=== PATIENT | male | born 1955 | race Caucasian/White ===

== ENCOUNTER → 2022-07-24 09:43 | Outpatient (BNVA) | payer MEDICARE, SELFPAY | PROVIDERS: PCP Internal Medicine; Visit Provider Hospitalist | DX: J45.909 Unspecified asthma, uncomplicated (principal); G47.31 Primary central sleep apnea; J33.9 Nasal polyp, unspecified | CPT/HCPCS: 99202 ==

== ENCOUNTER → 2022-09-30 09:44 | Outpatient (BNVA) | payer MEDICARE, SELFPAY | PROVIDERS: PCP Internal Medicine; Visit Provider Hospitalist | DX: G47.31 Primary central sleep apnea (principal); R68.2 Dry mouth, unspecified; J45.909 Unspecified asthma, uncomplicated; J33.9 Nasal polyp, unspecified; L20.9 Atopic dermatitis, unspecified; Z99.89 Dependence on other enabling machines and devices | CPT/HCPCS: 99212 ==

== ENCOUNTER → 2022-10-22 19:30 | Outpatient (REF) | payer MEDICARE, SELFPAY | LOC: HO.SL 19:30 | PROVIDERS: PCP Internal Medicine; Visit Provider Hospitalist | DX: G47.33 Obstructive sleep apnea (adult) (pediatric) (principal); R06.83 Snoring | CPT/HCPCS: 95810 ==

== ENCOUNTER → 2022-11-07 19:30 | Outpatient (REF) | payer MEDICARE, SELFPAY | LOC: HO.SL 19:30 | PROVIDERS: PCP Internal Medicine; Visit Provider Hospitalist | DX: G47.33 Obstructive sleep apnea (adult) (pediatric) (principal); G47.31 Primary central sleep apnea | CPT/HCPCS: 95811 ==

== ENCOUNTER 2023-02-03 14:00 | Outpatient (AMB) | payer MEDICARE, SELFPAY ==
--- NOTE | 2023-02-03 14:10 | MHC.OFFVIS ---
Intake Vital Signs 02/03/23 14:11 Height 5 ft 10 in Weight 227 lb BMI 32.6 BP 134/78 Blood Pressure Location Lt brachial Position Sitting Pulse 60 Pulse Source Pulse Oximeter Pulse Oximetry (%) 98 Oxygen Delivery Method Room Air Intake Visit Reasons: Sleep apnea Assistant Financial Accountant Required: No Allergies Penicillins Allergy (Severe, Verified 02/03/23 14:13) Hives HPI HPI Comments History of Present Illness Details The patient is a 67-year-old gentleman with known history or asthma nasal polyps and also sleep apnea. The patient had a sleep study back in 2011 at [facility]. It was an in-lab study at that time. He did have moderate to severe sleep apnea and had both obstructive and central apneas during that study. The patient was subsequently referred for titration study. He was titrated on CPAP and managed to have good stable control of his apnea with a CPAP of 11 cm. He has been on CPAP for many years. However, he has been having hard time with CPAP at this time. His current CPAP is set up AutoPAP 8-14. I did download the data. His average pressure is around 12 and average use is around 3.5 hours. His AHI still elevated at 7 with three episodes an hour of central sleep apnea. At this time he is having hard time tolerating it because of significant dry mouth. He does use a fullface mask. And still significantly dry mouth where he needs to stop using it and drink water and refill the tank. He runs out of water from the chamber every night. His current settings he has a regular sling line tubing and humidity is at 8. I did change the APAP to CPAP 11 with ramp of 6 and decreased Humidity to 4. His last sleep study was in 2011 and he is not active with a [facility]. He will need to undergo a repeat in lab PSG to re-evaluate his complex sleep apnea. EPWORH score 05/29. 09/30/2022 the patient is here for a pulmonary follow-up visit. Continues to struggle with his sleep apnea. Still having daytime drowsiness with an [place] score elevated 05/29. If with switch his CPAP to a CPAP 11 cm of water during the last visit. The AHI continues to be elevated although less central sleep apnea noted. Therefore, will going to increase his CPAP to 13 cm and is going to monitor closely for any worsening apneic episodes. The patient also needs to have a in-lab sleep study with hopeful titration study in order to requalify him for his sleep apnea in getting him new supplies from a [employer] company in addition to being able to titrate the pressures accordingly to treat his complex sleep apnea issue. The patient does have significant asthma and also nasal polyposis and atopic dermatitis. Unfortunately nasal polyps are affecting his ability to tolerate the PAP therapy. He is doing better with a fullface mask. Still consider biologic therapy such as Dupixent will be a good option for him. In the meantime he he is using the nasal therapies with the cortical steroids and also nasal rinsing. We also talked about adding budesonide to the Neti bottle in the future in order to help decrease the inflammation. Already he is already responding to the current regimen. Will have follow up after sleep study. If the patient has any issues prior to that he is to call for an appointment. 02/03/2023 patient is here for a pulmonary follow-up visit. Overall the patient seems to be doing little better. Still having daytime drowsiness. [place] score still elevated 8/24. He did undergo a titration sleep study which recommended switching his APAP to a BiPAP with a pressure of 19/15. On that pressure we spent for about an hour during the study his AHI was 0 his oxygenation was okay and his central apneas also were under good control. Initially when he started using the BiPAP seems like his AHI is were normalized. Then subsequently something happened that his pressure started climbing. For the last 2 nights he has been doing better. He has been also struggling with the mask. Initially had a fullface mask F20 and then because of significant nasal bridge leakage she was switch over to an F 30. Still not getting a good seal and his mouth is popping out of the mask and therefore he is losing pressure. He is complaining of very dry mouth which is uncomfortable. His settings already maximum with humidity of 8 and a temperature of 82 F. I believe this is all related to position and mass where his AHI is Very variable. I did provide him with a different mask, AirTouch foam F20 large. We were able to get a good seal with this mask. Was comfortable for him. He does have facial hairs of the foam will be better keeping seal. I do believe that with the functional Del Rosario mouth is unlikely going to be dry and he probably have to decrease the humidity and the temperature. We left the settings the same . If the patient would like to try VPAP auto he can also switch the machine over to an auto setting although this may worsen the central apneas potentially. In regards of his asthma seems to be in good control at this time with current medicine. Also he did follow-up with ENT and he had no more evidence of nasal polyposis which is reassuring. ON LICENSE OF [facility] Medical History (Updated 07/24/22 @ 10:33 by Elvis Jordan MD) Asthma Complex sleep apnea syndrome Nasal polyps MAYRA on CPAP Social History (Updated 07/24/22 @ 09:57 by EMILI Pablo) Patient Tobacco Use Status: Never used Tobacco Review of Systems Const Reports daytime sleepiness, Reports snoring, Reports stops breathing during sleep and Reports weight gain Eyes Reports no additional complaints ENT Reports nasal congestion, Reports nasal discharge and Reports nasal obstruction Card Denies chest pain Resp Reports cough and Reports snoring GI Reports no additional complaints Musc Reports arthralgias and Reports limited range of motion Skin/Breast Denies rash Neuro Reports no additional complaints Endo Denies flushing Nahun/Lymph Denies easy bleeding and Denies easy bruising Aller/Immun Reports seasonal rhinorrhea Physical Exam Vital Signs: Last Vital Signs Pulse 60 02/03/23 14:11 BP 134/78 02/03/23 14:11 Pulse Ox 98 02/03/23 14:11 Oxygen Delivery Method Room Air 02/03/23 14:11 BMI result Body Mass Index 32.6 Const General: comfortable HEENT General nose exam: Abnormal mucous membranes and turbinates present erythematous and Nasal polyp present Throat: Yes cobblestoning Eyes General: appearance normal, both eyes and all related structures Neck Neck: Yes supple Chest Chest palpation & inspection: normal inspection of the chest Resp Effort & Inspection: normal respiratory effort Auscultation: clear to auscultation bilaterally and no wheezes Cardio Rate: regular rate Rhythm: regular rhythm Heart sounds: S1 normal heart sound present and S2 normal heart sound present GI Auscultation: normal bowel sounds Skin Rashes: no rashes Extrem General: No clubbing and No cyanosis Results Reviewed Results Reviewed: Personally reviewed his sleep study. Reviewed results with the patient closely in the titration results. Assessment & Plan Assessment & Plan (1) Complex sleep apnea syndrome: Code(s): G47.31 - Primary central sleep apnea (2) Asthma: Code(s): J45.909 - Unspecified asthma, uncomplicated (3) Nasal polyps: Code(s): J33.9 - Nasal polyp, unspecified Plan He did bring his BiPAP in we were able to adjust his machine and change the mask to an AirTouch F20 large. he did tried in the office in the provided a good seal he was comfortable with. He will continue with the BiPAP 19 in 15. He can also try auto PAP use has switching over if the regular BiPAP ST is not effective in controlling his apnea. My suspicion is that is will based on his titration study. nasal sprays as per Allergy continue respiratory therapy as per Allergy continue sinus saline rinsing F/U 3-4 months Coding Level of Care Code Est Pt Level 5 (66457) Diagnoses Complex sleep apnea syndrome G47.31 Asthma J45.909 Nasal polyps J33.9 Time Spent (min) 45
[2023-02-03 14:11] VITALS: BP 134/78; PULSE 60; O2SAT 98; BMI 32.6
== END 2023-02-03 14:49 | disposition home or self-care (01) ==
PROVIDERS: PCP Internal Medicine; Visit Provider Hospitalist
DX: G47.31 Primary central sleep apnea (principal); J45.909 Unspecified asthma, uncomplicated; J33.9 Nasal polyp, unspecified
CPT/HCPCS: 99215

== ENCOUNTER → 2023-02-03 14:00 | Outpatient (BNVA) | payer MEDICARE, SELFPAY | PROVIDERS: PCP Internal Medicine; Visit Provider Hospitalist | DX: J45.909 Unspecified asthma, uncomplicated (principal); J33.9 Nasal polyp, unspecified; G47.33 Obstructive sleep apnea (adult) (pediatric); G47.31 Primary central sleep apnea; R40.0 Somnolence; Z99.89 Dependence on other enabling machines and devices | CPT/HCPCS: 99212 ==

== ENCOUNTER 2023-05-22 09:18 | Outpatient (AMB) | payer MEDICARE, SELFPAY ==
[2023-05-22 09:28] VITALS: PULSE 63; O2SAT 96; BMI 32.7
--- NOTE | 2023-05-22 09:28 | MHC.OFFVIS ---
Intake Vital Signs 05/22/23 09:28 Height 5 ft 10 in Weight 228 lb BMI 32.7 Pulse 63 Pulse Source Pulse Oximeter Pulse Oximetry (%) 96 Oxygen Delivery Method Room Air Intake Visit Reasons: SV Persistent unrelenting cough C Developer Required: No Allergies Penicillins Allergy (Severe, Verified 05/22/23 09:29) Hives HPI HPI Comments History of Present Illness Details The patient is a 67-year-old gentleman with known history or asthma nasal polyps and also sleep apnea. The patient had a sleep study back in 2011 at [facility]. It was an in-lab study at that time. He did have moderate to severe sleep apnea and had both obstructive and central apneas during that study. The patient was subsequently referred for titration study. He was titrated on CPAP and managed to have good stable control of his apnea with a CPAP of 11 cm. He has been on CPAP for many years. However, he has been having hard time with CPAP at this time. His current CPAP is set up AutoPAP 8-14. I did download the data. His average pressure is around 12 and average use is around 3.5 hours. His AHI still elevated at 7 with three episodes an hour of central sleep apnea. At this time he is having hard time tolerating it because of significant dry mouth. He does use a fullface mask. And still significantly dry mouth where he needs to stop using it and drink water and refill the tank. He runs out of water from the chamber every night. His current settings he has a regular sling line tubing and humidity is at 8. I did change the APAP to CPAP 11 with ramp of 6 and decreased Humidity to 4. His last sleep study was in 2011 and he is not active with a [facility]. He will need to undergo a repeat in lab PSG to re-evaluate his complex sleep apnea. EPWORH score 05/29. 09/30/2022 the patient is here for a pulmonary follow-up visit. Continues to struggle with his sleep apnea. Still having daytime drowsiness with an [place] score elevated 05/29. If with switch his CPAP to a CPAP 11 cm of water during the last visit. The AHI continues to be elevated although less central sleep apnea noted. Therefore, will going to increase his CPAP to 13 cm and is going to monitor closely for any worsening apneic episodes. The patient also needs to have a in-lab sleep study with hopeful titration study in order to requalify him for his sleep apnea in getting him new supplies from a [employer] in addition to being able to titrate the pressures accordingly to treat his complex sleep apnea issue. The patient does have significant asthma and also nasal polyposis and atopic dermatitis. Unfortunately nasal polyps are affecting his ability to tolerate the PAP therapy. He is doing better with a fullface mask. Still consider biologic therapy such as Dupixent will be a good option for him. In the meantime he he is using the nasal therapies with the cortical steroids and also nasal rinsing. We also talked about adding budesonide to the Neti bottle in the future in order to help decrease the inflammation. Already he is already responding to the current regimen. Will have follow up after sleep study. If the patient has any issues prior to that he is to call for an appointment. 02/03/2023 patient is here for a pulmonary follow-up visit. Overall the patient seems to be doing little better. Still having daytime drowsiness. [place] score still elevated 02/26. He did undergo a titration sleep study which recommended switching his APAP to a BiPAP with a pressure of 19/15. On that pressure we spent for about an hour during the study his AHI was 0 his oxygenation was okay and his central apneas also were under good control. Initially when he started using the BiPAP seems like his AHI is were normalized. Then subsequently something happened that his pressure started climbing. For the last 2 nights he has been doing better. He has been also struggling with the mask. Initially had a fullface mask F20 and then because of significant nasal bridge leakage she was switch over to an F 30. Still not getting a good seal and his mouth is popping out of the mask and therefore he is losing pressure. He is complaining of very dry mouth which is uncomfortable. His settings already maximum with humidity of 8 and a temperature of 82 F. I believe this is all related to position and mass where his AHI is Very variable. I did provide him with a different mask, AirTouch foam F20 large. We were able to get a good seal with this mask. Was comfortable for him. He does have facial hairs of the foam will be better keeping seal. I do believe that with the functional Del Rosario mouth is unlikely going to be dry and he probably have to decrease the humidity and the temperature. We left the settings the same 19/15. If the patient would like to try VPAP auto he can also switch the machine over to an auto setting although this may worsen the central apneas potentially. In regards of his asthma seems to be in good control at this time with current medicine. Also he did follow-up with ENT and he had no more evidence of nasal polyposis which is reassuring. 05/22/2023 the patient is here for sick visit. The patient a worse cough the last 4 weeks. The cough is moderate to severe. He has gotten to coughing spells where he nearly passed out or even passed out. He also has had a coughing episodes where he gags and vomits. Is been pretty significant for him. The patient states that he is able to bring up some phlegm at times that is whitish in color. Denies any pleuritic chest pain. He has been using his inhaler. He did go up on the Trelegy to the 200 to see if this was more effective. He did get the RCA vaccine. He also get the flu vaccine. He did test negative for COVID-19. The cough appears to be bronchospastic although diminished breath sounds bilaterally. Will go ahead and treat him with DuoNeb x2 and then we will reassess the respiratory examination. I did personally review the chest x-ray that he had a [facility] on May 18 demonstrating no acute disease. Does have significant scoliosis. [facility] Medical History (Updated 05/24/23 @ 19:51 by Elvis Jordan MD) Chronic cough Nasal polyps Asthma Complex sleep apnea syndrome MAYRA on CPAP Social History (Updated 07/24/22 @ 09:57 by EMILI Pablo) Patient Tobacco Use Status: Never used Tobacco Review of Systems Const Reports weight gain Eyes Reports no additional complaints ENT Reports nasal congestion, Reports nasal discharge and Reports nasal obstruction Card Denies chest pain Resp Reports chest congestion, Reports cough and Reports wheezing GI Reports no additional complaints Musc Reports arthralgias and Reports limited range of motion Skin/Breast Denies rash Neuro Reports no additional complaints Endo Denies flushing Nahun/Lymph Denies easy bleeding and Denies easy bruising Aller/Immun Reports seasonal rhinorrhea and Reports wheezing Physical Exam Vital Signs: Last Vital Signs Pulse 63 05/22/23 09:28 Pulse Ox 96 05/22/23 09:28 Oxygen Delivery Method Room Air 05/22/23 09:28 BMI result Body Mass Index 32.7 Const General: comfortable HEENT General nose exam: Abnormal mucous membranes and turbinates present erythematous and Nasal polyp present Throat: Yes cobblestoning Eyes General: appearance normal, both eyes and all related structures Neck Neck: Yes supple Chest Chest palpation & inspection: normal inspection of the chest Resp Effort & Inspection: normal respiratory effort, Actively coughing Quality: actively coughing and prolonged expiratory phase Auscultation: wheezes and diminished lung sounds Cardio Rate: regular rate Rhythm: regular rhythm Heart sounds: S1 normal heart sound present and S2 normal heart sound present GI Auscultation: normal bowel sounds Skin Rashes: no rashes Extrem General: No clubbing and No cyanosis Office Procedures Nebulizer Treatment Nebulizer Treatment [id number] RX initial, or Nebulizer Subsequent Treatment Office Meds ipratropium 0.5 mg-albuterol 3 mg (2.5 mg base)/3 mL nebulization soln Performing Provider: Elvis Jordan MD Performing Location: [facility] Administered by: Naheed Wall LPN on 05/22/23 09:53 Dose Route Admin Location Dispensed Lot Number Expiration Date ND Claim Rep 6 mL inhalation 6 mL [id number] 01/02/25 0834-3945-35 [facility] Assessment & Plan Assessment & Plan (1) Complex sleep apnea syndrome: Code(s): G47.31 - Primary central sleep apnea (2) Asthma: Code(s): J45.909 - Unspecified asthma, uncomplicated Qualifiers: Asthma complication type: with acute exacerbation Asthma persistence: persistent Asthma severity: moderate Qualified Code(s): J45.41 - Moderate persistent asthma with (acute) exacerbation (3) Nasal polyps: Code(s): J33.9 - Nasal polyp, unspecified (4) Bronchitis: Code(s): J40 - Bronchitis, not specified as acute or chronic Plan Needs a nebulizer. One was provided start CPT with acapella Start Albuterol via nebulizer BID start Predniaone taper start Doxycycline increase Breo 200 for now nasal sprays as per Allergy continue sinus saline rinsing consider cough medicine call if no better F/U 3-4 months Orders: Orders AMB Nebulizer Treatment 05/22/23 J45.909 - Unspecified asthma, uncomplicated, R05.3 - Chronic cough Medications: New doxycycline hyclate 100 mg PO BID 10 days 20 caps 0RF albuterol sulfate 2.5 mg (3 mL) inhalation Q6H 30 days PRN 180 mL 11RF shortness of breath or wheezing fluticasone furoate-vilanterol 200-25 mcg/dose (Breo Ellipta) 1 inh inhalation DAILY 30 days 60 ea 11RF J45.909 - Unspecified asthma, uncomplicated prednisone PO daily; Take 2 tabs daily x 5 days, then 1 tablet daily x 5 days 10 days 15 tabs 0RF Coding Level of Care Code Est Pt Level 4 (03443) Diagnoses Complex sleep apnea syndrome G47.31 Moderate persistent asthma with acute exacerbation J45.41 Asthma complication type: with acute exacerbation Asthma persistence: persistent Asthma severity: moderate Nasal polyps J33.9 Bronchitis J40 CPT Codes Nebulizer Treatment - Nebulizer Treatment, initial or subsequent: [id number]/MDI RX initial, or Nebulizer Subsequent Treatment ([id number]) Time Spent (min) 18
== END 2023-05-22 10:18 | disposition home or self-care (01) ==
PROVIDERS: PCP Internal Medicine; Visit Provider Hospitalist
DX: G47.31 Primary central sleep apnea (principal); J45.41 Moderate persistent asthma with (acute) exacerbation; J33.9 Nasal polyp, unspecified; J40 Bronchitis, not specified as acute or chronic
CPT/HCPCS: 99214

== ENCOUNTER → 2023-05-22 09:18 | Outpatient (BNVA) | payer MEDICARE, SELFPAY | PROVIDERS: PCP Internal Medicine; Visit Provider Hospitalist | DX: J45.41 Moderate persistent asthma with (acute) exacerbation (principal); J33.9 Nasal polyp, unspecified; J40 Bronchitis, not specified as acute or chronic; G47.31 Primary central sleep apnea | CPT/HCPCS: 94640; 99212 ==

== ENCOUNTER 2023-07-31 14:10 | Outpatient (AMB) | payer MEDICARE, SELFPAY ==
--- NOTE | 2023-07-31 14:16 | MHC.OFFVIS ---
Intake Vital Signs 07/31/23 14:17 Height 5 ft 11 in Weight 234 lb BMI 32.6 Pulse 62 Pulse Source Pulse Oximeter Pulse Oximetry (%) 95 Oxygen Delivery Method Room Air Intake Visit Reasons: sleep apnea Solid Die Cutter Required: No Allergies Penicillins Allergy (Severe, Verified 07/31/23 14:18) Hives HPI HPI Comments History of Present Illness Details The patient is a 67-year-old gentleman with known history or asthma nasal polyps and also sleep apnea. The patient had a sleep study back in 2011 at [facility]. It was an in-lab study at that time. He did have moderate to severe sleep apnea and had both obstructive and central apneas during that study. The patient was subsequently referred for titration study. He was titrated on CPAP and managed to have good stable control of his apnea with a CPAP of 11 cm. He has been on CPAP for many years. However, he has been having hard time with CPAP at this time. His current CPAP is set up AutoPAP 8-14. I did download the data. His average pressure is around 12 and average use is around 3.5 hours. His AHI still elevated at 7 with three episodes an hour of central sleep apnea. At this time he is having hard time tolerating it because of significant dry mouth. He does use a fullface mask. And still significantly dry mouth where he needs to stop using it and drink water and refill the tank. He runs out of water from the chamber every night. His current settings he has a regular sling line tubing and humidity is at 8. I did change the APAP to CPAP 11 with ramp of 6 and decreased Humidity to 4. His last sleep study was in 2011 and he is not active with a [employer]. He will need to undergo a repeat in lab PSG to re-evaluate his complex sleep apnea. EPWORH score 05/29. 09/30/2022 the patient is here for a pulmonary follow-up visit. Continues to struggle with his sleep apnea. Still having daytime drowsiness with an [place] score elevated 05/29. If with switch his CPAP to a CPAP 11 cm of water during the last visit. The AHI continues to be elevated although less central sleep apnea noted. Therefore, will going to increase his CPAP to 13 cm and is going to monitor closely for any worsening apneic episodes. The patient also needs to have a in-lab sleep study with hopeful titration study in order to requalify him for his sleep apnea in getting him new supplies from a [employer] in addition to being able to titrate the pressures accordingly to treat his complex sleep apnea issue. The patient does have significant asthma and also nasal polyposis and atopic dermatitis. Unfortunately nasal polyps are affecting his ability to tolerate the PAP therapy. He is doing better with a fullface mask. Still consider biologic therapy such as Dupixent will be a good option for him. In the meantime he he is using the nasal therapies with the cortical steroids and also nasal rinsing. We also talked about adding budesonide to the Neti bottle in the future in order to help decrease the inflammation. Already he is already responding to the current regimen. Will have follow up after sleep study. If the patient has any issues prior to that he is to call for an appointment. 02/03/2023 patient is here for a pulmonary follow-up visit. Overall the patient seems to be doing little better. Still having daytime drowsiness. [place] score still elevated 02/26. He did undergo a titration sleep study which recommended switching his APAP to a BiPAP with a pressure of 19/15. On that pressure we spent for about an hour during the study his AHI was 0 his oxygenation was okay and his central apneas also were under good control. Initially when he started using the BiPAP seems like his AHI is were normalized. Then subsequently something happened that his pressure started climbing. For the last 2 nights he has been doing better. He has been also struggling with the mask. Initially had a fullface mask F20 and then because of significant nasal bridge leakage she was switch over to an F 30. Still not getting a good seal and his mouth is popping out of the mask and therefore he is losing pressure. He is complaining of very dry mouth which is uncomfortable. His settings already maximum with humidity of 8 and a temperature of 82 F. I believe this is all related to position and mass where his AHI is Very variable. I did provide him with a different mask, AirTouch foam F20 large. We were able to get a good seal with this mask. Was comfortable for him. He does have facial hairs of the foam will be better keeping seal. I do believe that with the functional Del Rosario mouth is unlikely going to be dry and he probably have to decrease the humidity and the temperature. We left the settings the same 19/15. If the patient would like to try VPAP auto he can also switch the machine over to an auto setting although this may worsen the central apneas potentially. In regards of his asthma seems to be in good control at this time with current medicine. Also he did follow-up with ENT and he had no more evidence of nasal polyposis which is reassuring. 05/22/2023 the patient is here for sick visit. The patient a worse cough the last 4 weeks. The cough is moderate to severe. He has gotten to coughing spells where he nearly passed out or even passed out. He also has had a coughing episodes where he gags and vomits. Is been pretty significant for him. The patient states that he is able to bring up some phlegm at times that is whitish in color. Denies any pleuritic chest pain. He has been using his inhaler. He did go up on the Trelegy to the 200 to see if this was more effective. He did get the RCA vaccine. He also get the flu vaccine. He did test negative for COVID-19. The cough appears to be bronchospastic although diminished breath sounds bilaterally. Will go ahead and treat him with DuoNeb x2 and then we will reassess the respiratory examination. I did personally review the chest x-ray that he had a [facility] on May 18 demonstrating no acute disease. Does have significant scoliosis. 07/31/2023 the patient is here for pulmonary follow-up visit. Finally starting to feel better. He was struggling with a respiratory illness in the last time I saw him. Subsequently after that he was starting to get better and then started getting worse again. He was evaluated at [facility] for worsening shortness of breath and chest tightness. He was diagnosed with RSV his chest x-ray personally viewed appeared to be clear. He has been using his nebulizer regularly. Finally he is now off the prednisone and off all antibiotics. He is feeling better overall. Denies any congested cough although he still coughing and still feel some chest tightness. A my examination it is reassuring he does not have any significant wheezing at this time. I do not believe he needs additional steroids. He does plan to continue using the nebulizer and is Breo will be increased to a higher dose. If the patient is not improving or worsens he can always call for further Recommendations. As far as his BiPAP the BiPAP therapy has been affecting beneficial. He does use it every night for more than 4 hours a night in the therapy continues to be helpful. [facility] Medical History (Updated 05/24/23 @ 19:51 by Elvis Jordan MD) Chronic cough Nasal polyps Asthma Complex sleep apnea syndrome MAYRA on CPAP Social History (Updated 07/24/22 @ 09:57 by EMILI Pablo) Patient Tobacco Use Status: Never used Tobacco Review of Systems Const Reports weight gain Eyes Reports no additional complaints ENT Reports nasal congestion, Reports nasal discharge and Reports nasal obstruction Card Denies chest pain Resp Denies chest congestion, Reports cough and Reports wheezing GI Reports no additional complaints Musc Reports arthralgias and Reports limited range of motion Skin/Breast Denies rash Neuro Reports no additional complaints Endo Denies flushing Nahun/Lymph Denies easy bleeding and Denies easy bruising Aller/Immun Reports seasonal rhinorrhea and Reports wheezing Physical Exam Vital Signs: Last Vital Signs Pulse 62 07/31/23 14:17 Pulse Ox 95 07/31/23 14:17 Oxygen Delivery Method Room Air 07/31/23 14:17 BMI result Body Mass Index 32.6 Const General: comfortable HEENT General nose exam: Abnormal mucous membranes and turbinates present erythematous and Nasal polyp present Throat: Yes cobblestoning Eyes General: appearance normal, both eyes and all related structures Neck Neck: Yes supple Chest Chest palpation & inspection: normal inspection of the chest Resp Effort & Inspection: normal respiratory effort Auscultation: no wheezes and diminished lung sounds Cardio Rate: regular rate Rhythm: regular rhythm Heart sounds: S1 normal heart sound present and S2 normal heart sound present GI Auscultation: normal bowel sounds Skin Rashes: no rashes Extrem General: No clubbing and No cyanosis Assessment & Plan Assessment & Plan (1) Complex sleep apnea syndrome: Code(s): G47.31 - Primary central sleep apnea (2) Asthma: Code(s): J45.909 - Unspecified asthma, uncomplicated Qualifiers: Asthma complication type: with acute exacerbation Asthma persistence: persistent Asthma severity: moderate Qualified Code(s): J45.41 - Moderate persistent asthma with (acute) exacerbation (3) Nasal polyps: Code(s): J33.9 - Nasal polyp, unspecified (4) Bronchitis: Code(s): J40 - Bronchitis, not specified as acute or chronic Plan Needs a nebulizer. One was provided continue CPT with acapella Albuterol via nebulizer BID as needed increase Breo 200 for now nasal sprays as per Allergy continue sinus saline rinsing consider cough medicine call if no better F/U 3-4 months Coding Level of Care Code Est Pt Level 4 (39791) Diagnoses Complex sleep apnea syndrome G47.31 Moderate persistent asthma with acute exacerbation J45.41 Asthma complication type: with acute exacerbation Asthma persistence: persistent Asthma severity: moderate Nasal polyps J33.9 Bronchitis J40 Time Spent (min) 18
[2023-07-31 14:17] VITALS: PULSE 62; O2SAT 95; BMI 32.6
== END 2023-07-31 14:39 | disposition home or self-care (01) ==
PROVIDERS: PCP Internal Medicine; Visit Provider Hospitalist
DX: G47.31 Primary central sleep apnea (principal); J45.41 Moderate persistent asthma with (acute) exacerbation; J33.9 Nasal polyp, unspecified; J40 Bronchitis, not specified as acute or chronic
CPT/HCPCS: 99214

== ENCOUNTER → 2023-07-31 14:10 | Outpatient (BNVA) | payer MEDICARE, SELFPAY | PROVIDERS: PCP Internal Medicine; Visit Provider Hospitalist | DX: J45.41 Moderate persistent asthma with (acute) exacerbation (principal); G47.31 Primary central sleep apnea; J33.9 Nasal polyp, unspecified; J40 Bronchitis, not specified as acute or chronic | CPT/HCPCS: 99212 ==

== ENCOUNTER 2024-04-11 14:07 | Outpatient (AMB) | payer MEDICARE, SELFPAY ==
[2024-04-11 14:21] VITALS: BP 120/78; PULSE 62; O2SAT 98; BMI 31.4
--- NOTE | 2024-04-11 14:21 | A.OFFVIS_ITS ---
Vital Signs 04/11/24 14:21 Height 5 ft 11 in Weight 225 lb BMI 31.4 BP 120/78 Blood Pressure Location Lt brachial Position Sitting Pulse 62 Pulse Source Pulse Oximeter Pulse Oximetry (%) 98 Oxygen Delivery Method Room Air Intake Visit Reasons: persistent cough Water Quality Tester Required: No Allergies Penicillins Allergy (Severe, Verified 04/11/24 14:23) Hives HPI Comments Details: The patient is a 68-year-old gentleman with known history or asthma nasal polyps and also sleep apnea. The patient had a sleep study back in 2011 at [facility]. It was an in-lab study at that time. He did have moderate to severe sleep apnea and had both obstructive and central apneas during that study . The patient was subsequently referred for titration study. He was titrated on CPAP and managed to have good stable control of his apnea with a CPAP of 11 cm. He has been on CPAP for many years. However, he has been having hard time with CPAP at this time. His current CPAP is set up AutoPAP 8-14. I did download the data. His average pressure is around 12 and average use is around 3.5 hours. His AHI still elevated at 7 with three episodes an hour of central sleep apnea. At this time he is having hard time tolerating it because of significant dry mouth. He does use a fullface mask. And still significantly dry mouth where he needs to stop using it and drink water and refill the tank. He runs out of water from the chamber every night. His current settings he has a regular sling line tubing and humidity is at 8. I did change the APAP to CPAP 11 with ramp of 6 and decreased Humidity to 4. His last sleep study was in 2011 and he is not active with a [employer]. He will need to undergo a repeat in lab PSG to re-evaluate his complex sleep apnea. EPWORH score 05/29. 09/30/2022 the patient is here for a pulmonary follow-up visit. Continues to struggle with his sleep apnea. Still having daytime drowsiness with an [place] score elevated 05/29. If with switch his CPAP to a CPAP 11 cm of water during the last visit. The AHI continues to be elevated although less central sleep apnea noted. Therefore, will going to increase his CPAP to 13 cm and is going to monitor closely for any worsening apneic episodes. The patient also needs to have a in-lab sleep study with hopeful titration study in order to requalify him for his sleep apnea in getting him new supplies from a [employer] company in addition to being able to titrate the pressures accordingly to treat his complex sleep apnea issue. The patient does have significant asthma and also nasal polyposis and atopic dermatitis. Unfortunately nasal polyps are affecting his ability to tolerate the PAP therapy. He is doing better with a fullface mask. Still consider biologic therapy such as Dupixent will be a good option for him. In the meantime he he is using the nasal therapies with the cortical steroids and also nasal rinsing. We also talked about adding budesonide to the Neti bottle in the future in order to help decrease the inflammation. Already he is already responding to the current regimen. Will have follow up after sleep study. If the patient has any issues prior to that he is to call for an appointment. 02/03/2023 patient is here for a pulmonary follow-up visit. Overall the patient seems to be doing little better. Still having daytime drowsiness. [place] score still elevated 8/24. He did undergo a titration sleep study which recommended switching his APAP to a BiPAP with a pressure of 19/15. On that pressure we spent for about an hour during the study his AHI was 0 his oxygenation was okay and his central apneas also were under good control. Initially when he started using the BiPAP seems like his AHI is were normalized. Then subsequently something happened that his pressure started climbing. For the last 2 nights he has been doing better. He has been also struggling with th e mask. Initially had a fullface mask F20 and then because of significant nasal bridge leakage she was switch over to an F 30. Still not getting a good seal and his mouth is popping out of the mask and therefore he is losing pressure. He is complaining of very dry mouth which is uncomfortable. His settings already maximum with humidity of 8 and a temperature of 82 F. I believe this is all related to position and mass where his AHI is Very variable. I did provide him with a different mask, AirTouch foam F20 large. We were able to get a good seal with this mask. Was comfortable for him. He does have facial hairs of the foam will be better keeping seal. I do believe that with the functional Del Rosario mouth is unlikely going to be dry and he probably have to decrease the humidity and the temperature. We left the settings the same . If the patient would like to try VPAP auto he can also switch the machine over to an auto setting although this may worsen the central apneas potentially. In regards of his asthma seems to be in good control at this time with current medicine. Also he did follow-up with ENT and he had no more evidence of nasal polyposis which is reassuring. 05/22/2023 the patient is here for sick visit. The patient a worse cough the last 4 weeks. The cough is moderate to severe. He has gotten to coughing spells where he nearly passed out or even passed out. He also has had a coughing episodes where he gags and vomits. Is been pretty significant for him. The patient states that he is able to bring up some phlegm at times that is whitish in color. Denies any pleuritic chest pain. He has been using his inhaler. He did go up on the Trelegy to the [facility] to see if this was more effective. He did get the RCA vaccine. He also get the flu vaccine. He did test negative for COVID-19. The cough appears to be bronchospastic although diminished breath sounds bilaterally. Will go ahead and treat him with DuoNeb x2 and then we will reassess the respiratory examination. I did personally review the chest x-ray that he had a [facility] on May 18 demonstrating no acute disease. Does have significant scoliosis. 07/31/2023 the patient is here for pulmonary follow-up visit. Finally starting to feel better. He was struggling with a respiratory illness in the last time I saw him. Subsequently after that he was starting to get better and then started getting worse again. He was evaluated at [facility] for worsening shortness of breath and chest tightness. He was diagnosed with RSV his chest x-ray personally viewed appeared to be clear. He has been using his nebulizer regularly. Finally he is now off the prednisone and off all antibiotics. He is feeling better overall. Denies any congested cough although he still coughing and still feel some chest tightness. A my examination it is reassuring he does not have any significant wheezing at this time. I do not believe he needs additional steroids. He does plan to continue using the nebulizer and is Breo will be increased to a higher dose. If the patient is not improving or worsens he can always call for further Recommendations. As far as his BiPAP the BiPAP therapy has been affecting beneficial. He does use it every night for more than 4 hours a night in the therapy continues to be helpful. 04/11/2024 the patient is here for sick visit. Apparently 2 weeks ago he was exposed to sick contact with his grandson. started developing URI symptoms. And then subsequently after that started developing worsening asthma symptoms. Significant chest tightness and wheezing. And subsequently coughing. The coughing spells became worse and worse. the coughing spells were pretty is sporadic. But moderate severity. Affecting his sleep. He has taken djlu-jux-xndzhvu medications without any significant improvement. He has been using his inhalers in his nebulizer also with only partial improvement of the symptoms. Therefore could not tolerate the symptoms longer decided to come in. The patient was having significant coughing spells and did have some crackles on examination suggesting some degree of bronchiolitis. He was given 2 treatments with DuoNeb with some partial improvement. Subsequently because of the significant chest tightness and wheezing he did receive Solu-Medrol intramuscularly. He is going to start a prednisone taper in addition to doxycycline to make sure we took covered for atypicals. If the patient is no better in 48 hours or so should call the office and we should get an x-ray. He meantime will provide him also with some cough medicine. He can hold off on using the BiPAP specially well dealing with a cough. Once he recovers from this respiratory illness she can go back to using the BiPAP. The patient has a follow-up in May. If he has any issues prior to that he will call for an earlier assessment. [facility] Medical History (Updated 09/29/23 @ 19:27 by Elvis Jordan MD) Dyspnea Chronic cough Nasal polyps Asthma Complex sleep apnea syndrome MAYRA on CPAP Social History (Updated 07/24/22 @ 09:57 by EMILI Pablo) Patient Tobacco Use Status: Never used Tobacco Review of Systems Const Reports fatigue, Denies fever(s), Reports headache(s) and Reports weight gain Eyes Reports no additional complaints ENT Reports headache(s), Reports nasal congestion, Reports nasal discharge and Reports nasal obstruction Card Denies chest pain Resp Denies change in phlegm color, Reports chest congestion, Reports cough, Denies hemoptysis and Reports wheezing GI Reports no additional complaints Musc Reports arthralgias and Reports limited range of motion Skin/Breast Denies rash Neuro Reports no additional complaints and Reports headache(s) Endo Reports fatigue and Denies flushing Nahun/Lymph Denies easy bleeding and Denies easy bruising Aller/Immun Reports seasonal rhinorrhea and Reports wheezing Physical Exam Vital Signs: Last Vital Signs Pulse 62 04/11/24 14:21 BP 120/78 04/11/24 14:21 Pulse Ox 98 04/11/24 14:21 Oxygen Delivery Method Room Air 04/11/24 14:21 BMI result Body Mass Index 31.4 Const General: comfortable HEENT General nose exam: Abnormal mucous membranes and turbinates present erythematous and Nasal polyp present Throat: Yes cobblestoning Eyes General: appearance normal, both eyes and all related structures Neck Neck: Yes supple Chest Chest palpation & inspection: normal inspection of the chest Resp Effort & Inspection: normal respiratory effort and Actively coughing Quality: actively coughing Auscultation: wheezes and diminished lung sounds Cardio Rate: regular rate Rhythm: regular rhythm Heart sounds: S1 normal heart sound present and S2 normal heart sound present GI Auscultation: normal bowel sounds Skin Rashes: no rashes Extrem General: No clubbing and No cyanosis Office Procedures Nebulizer Treatment Nebulizer Treatment [id number]/MDI RX initial, or Nebulizer Subsequent Treatment Office Meds methylprednisolone sod suc(PF) 125 mg/2 mL solution for injection Performing Provider: Elvis Jordan MD [place] [facility] [place] [facility] Administered by: Melisa Church LPN on 04/11/24 15:20 Dose Route Admin Location Dispensed Lot Number Expiration Date [facility] Senior Business Intelligence Analyst 125 mg IM R buttock 2 ea [id number] 03/05/26 1316-9647-84 [employer] Comments: total dose given 125mg/2ml ipratropium 0.5 mg-albuterol 3 mg (2.5 mg base)/3 mL nebulization soln Performing Provider: Elvis Jordan MD [place] [facility] [place] [facility] Administered by: Melisa Church LPN on 04/11/24 15:20 Dose Route Admin Location Dispensed Lot Number Expiration Date [facility] Senior Business Intelligence Analyst 3 mL inhalation 3 mL [id number] 11/02/25 34738-475-75 [facility] Assessment & Plan Assessment & Plan (1) Asthma: Code(s): J45.909 - Unspecified asthma, uncomplicated Category: Medical Qualifiers: Asthma severity: moderate Asthma persistence: persistent Asthma complication type: with acute exacerbation Qualified Code(s): J45.41 - Moderate persistent asthma with (acute) exacerbation (2) Bronchitis: Code(s): J40 - Bronchitis, not specified as acute or chronic Category: Medical (3) Complex sleep apnea syndrome: Code(s): G47.31 - Primary central sleep apnea Category: Medical (4) Nasal polyps: Code(s): J33.9 - Nasal polyp, unspecified Category: Medical Plan Solumedrol 125mg IM x 1 Prednisone taper start Doxycycline cough medicine nebulizer. continue CPT with acapella Albuterol via nebulizer BID as needed Breo 200 for now nasal sprays as per Allergy continue sinus saline rinsing call if no better in 48 hours F/U 2-3 months Orders: Orders AMB Nebulizer Treatment Today J40 - Bronchitis, not specified as acute or chronic AMB Methylprednisolone Sod Succ Injection Today J40 - Bronchitis, not specified as acute or chronic Medications: New prednisone PO daily; Take 6 tabs daily x 3 days, then 5 tabs x 3 days, then 4 tabs x 3 days, then 3 tabs x 3 days, then 2 tabs daily x 3 days, then 1 tab x 3 days to complete. 63 tabs 0RF 18 days codeine-guaifenesin 10-100 mg/5 mL 10 mL PO Q6H PRN 300 mL 0RF cough 10 days doxycycline hyclate 100 mg PO BID 20 caps 0RF 10 days Coding Level of Care Code Est Pt Level 4 (74740) Diagnoses Moderate persistent asthma with acute exacerbation J45.41 Asthma severity: moderate Asthma persistence: persistent Asthma complication type: with acute exacerbation Bronchitis J40 Complex sleep apnea syndrome G47.31 Nasal polyps J33.9 CPT Codes Nebulizer Treatment - Nebulizer Treatment, initial or subsequent: [id number]- Nebulizer/MDI RX initial, or Nebulizer Subsequent Treatment ([id number]) Time Spent (min) 17
== END 2024-04-11 15:14 | disposition home or self-care (01) ==
PROVIDERS: PCP Internal Medicine; Visit Provider Hospitalist
DX: J45.41 Moderate persistent asthma with (acute) exacerbation (principal); J40 Bronchitis, not specified as acute or chronic; G47.31 Primary central sleep apnea; J33.9 Nasal polyp, unspecified
CPT/HCPCS: 99214

== ENCOUNTER → 2024-04-11 14:07 | Outpatient (BNVA) | payer MEDICARE, SELFPAY | PROVIDERS: PCP Internal Medicine; Visit Provider Hospitalist | DX: J45.41 Moderate persistent asthma with (acute) exacerbation (principal); J40 Bronchitis, not specified as acute or chronic; J33.9 Nasal polyp, unspecified; R05.3 Chronic cough; G47.31 Primary central sleep apnea; Z99.89 Dependence on other enabling machines and devices | CPT/HCPCS: 94640; 96372; 99212; J2919 ==

== ENCOUNTER 2024-05-17 09:06 | Outpatient (AMB) | payer MEDICARE, SELFPAY ==
[2024-05-17 09:08] VITALS: BP 140/72; PULSE 72; O2SAT 98; BMI 32.9
--- NOTE | 2024-05-17 09:08 | A.OFFVIS_ITS ---
Vital Signs 05/17/24 09:08 Height 5 ft 11 in Weight 235 lb 14.314 oz BMI 32.9 BP 140/72 H Blood Pressure Location Lt brachial Position Sitting Pulse 72 Pulse Source Pulse Oximeter Pulse Oximetry (%) 98 Oxygen Delivery Method Room Air Intake Visit Reasons: Sleep apnea Tribal Judge Required: No Painter Ordnance: Painter Ordnance offered & declined Accompanied by: Self / Same As Patient Allergies Penicillins Allergy (Severe, Verified 05/17/24 09:14) Hives Medication List - Last Reconciled 05/17/24 by Naheed Wall LPN albuterol sulfate 90 mcg/actuation 0 mcg inhalation albuterol sulfate 2.5 mg (3 mL) inhalation Q6H PRN 30 days amlodipine 5 mg PO DAILY azelastine 2 sprays intranasal BID Breo Ellipta 200-25 mcg/dose (fluticasone furoate-vilanterol) 1 inh inhalation DAILY 90 days NS cetirizine (Zyrtec) 10 mg PO DAILY PRN codeine-guaifenesin 10-100 mg/5 mL 10 mL PO Q6H PRN 10 days CPAP (CPAP Machine/Device) As directed epinephrine 0.3 mg IM Q4H PRN nebulizers As directed omeprazole 20 mg PO DAILY propranolol 60 mg PO DAILY HPI Comments Details: The patient is a 68-year-old gentleman with known history or asthma nasal polyps and also sleep apnea. The patient had a sleep study back in 2011 at [facility]. It was an in-lab study at that time. He did have moderate to severe sleep apnea and had both obstructive and central apneas during that study. The patient was subsequently referred for titration study. He was titrated on CPAP and managed to have good stable control of his apnea with a CPAP of 11 cm. He has been on CPAP for many years. However, he has been having hard time with CPAP at this time. His current CPAP is set up AutoPAP 8-14. I did download the data. His average pressure is around 12 and average use is around 3.5 hours. His AHI still elevated at 7 with three episodes an hour of central sleep apnea. At this time he is having hard time tolerating it because of significant dry mouth. He does use a fullface mask. And still significantly dry mouth where he needs to stop using it and drink water and refill the tank. He runs out of water from the chamber every night. His current settings he has a regular sling line tubing and humidity is at 8. I did change the APAP to CPAP 11 with ramp of 6 and decreased Humidity to 4. His last sleep study was in 2011 and he is not active with a [employer] company. He will need to undergo a repeat in lab PSG to re-evaluate his complex sleep apnea. EPWORH score 11/24. 09/30/2022 the patient is here for a pulmonary follow-up visit. Continues to struggle with his sleep apnea. Still having daytime drowsiness with an Florence score elevated 11/24. If with switch his CPAP to a CPAP 11 cm of water during the last visit. The AHI continues to be elevated although less central sleep apnea noted. Therefore, will going to increase his CPAP to 13 cm and is going to monitor closely for any worsening apneic episodes. The patient also needs to have a in-lab sleep study with hopeful titration study in order to requalify him for his sleep apnea in getting him new supplies from a [employer] company in addition to being able to titrate the pressures accordingly to treat his complex sleep apnea issue. The patient does have significant asthma and also nasal polyposis and atopic dermatitis. Unfortunately nasal polyps are affecting his ability to tolerate the PAP therapy. He is doing better with a fullface mask. Still consider biologic therapy such as Dupixent will be a good option for him. In the meantime he he is using the nasal therapies with the cortical steroids and also nasal rinsing. We also talked about adding budesonide to the Neti bottle in the future in order to help decrease the inflammation. Already he is already responding to the current regimen. Will have follow up after sleep study. If the patient has any issues prior to that he is to call for an appointment. 02/03/2023 patient is here for a pulmonary follow-up visit. Overall the patient seems to be doing little better. Still having daytime drowsiness. Florence score still elevated 8/24. He did undergo a titration sleep study which recommended switching his APAP to a BiPAP with a pressure of 19/15. On that pressure we spent for about an hour during the study his AHI was 0 his oxygenation was okay and his central apneas also were under good control. Initially when he started using the BiPAP seems like his AHI is were normalized. Then subsequently something happened that his pressure started climbing. For the last 2 nights he has been doing better. He has been also struggling with the mask. Initially had a fullface mask F20 and then because of significant nasal bridge leakage she was switch over to an F 30. Still not getting a good seal and his mouth is popping out of the mask and therefore he is losing pressure. He is complaining of very dry mouth which is uncomfortable. His settings already maximum with humidity of 8 and a temperature of 82 F. I believe this is all related to position and mass where his AHI is Very variable. I did provide him with a different mask, AirTouch foam F20 large. We were able to get a good seal with this mask. Was comfortable for him. He does have facial hairs of the foam will be better keeping seal. I do believe that with the functional [place] mouth is unlikely going to be dry and he probably have to decrease the humidity and the temperature. We left the settings the same . If the patient would like to try VPAP auto he can also switch the machine over to an auto setting although this may worsen the central apneas potentially. In regards of his asthma seems to be in good control at this time with current medicine. Also he did follow-up with ENT and he had no more evidence of nasal polyposis which is reassuring. 05/22/2023 the patient is here for sick visit. The patient a worse cough the last 4 weeks. The cough is moderate to severe. He has gotten to coughing spells where he nearly passed out or even passed out. He also has had a coughing episodes where he gags and vomits. Is been pretty significant for him. The patient states that he is able to bring up some phlegm at times that is whitish in color. Denies any pleuritic chest pain. He has been using his inhaler. He did go up on the Trelegy to the 200 to see if this was more effective. He did get the RCA vaccine. He also get the flu vaccine. He did test negative for COVID-19. The cough appears to be bronchospastic although diminished breath sounds bilaterally. Will go ahead and treat him with DuoNeb x2 and then we will reassess the respiratory examination. I did personally review the chest x-ray that he had a [facility] on May 18 demonstrating no acute disease. Does have significant scoliosis. 07/31/2023 the patient is here for pulmonary follow-up visit. Finally starting to feel better. He was struggling with a respiratory illness in the last time I saw him. Subsequently after that he was starting to get better and then started getting worse again. He was evaluated at [place] for worsening shortness of breath and chest tightness. He was diagnosed with RSV his chest x-ray personally viewed appeared to be clear. He has been using his nebulizer regularly. Finally he is now off the prednisone and off all antibiotics. He is feeling better overall. Denies any congested cough although he still coughing and still feel some chest tightness. A my examination it is reassuring he does not have any significant wheezing at this time. I do not believe he needs additional steroids. He does plan to continue using the nebulizer and is Breo will be increased to a higher dose. If the patient is not improving or worsens he can always call for further Recommendations. As far as his BiPAP the BiPAP therapy has been affecting beneficial. He does use it every night for more than 4 hours a night in the therapy continues to be helpful. 04/11/2024 the patient is here for sick visit. Apparently 2 weeks ago he was exposed to sick contact with his grandson. started developing URI symptoms. And then subsequently after that started developing worsening asthma symptoms. Significant chest tightness and wheezing. And subsequently coughing. The coughing spells became worse and worse. the coughing spells were pretty is sporadic. But moderate severity. Affecting his sleep. He has taken [id number] medications without any significant improvement. He has been using his inhalers in his nebulizer also with only partial improvement of the symptoms. Therefore could not tolerate the symptoms longer decided to come in. The patient was having significant coughing spells and did have some crackles on examination suggesting some degree of bronchiolitis. He was given 2 treatments with DuoNeb with some partial improvement. Subsequently because of the significant chest tightness and wheezing he did receive Solu-Medrol intramus cularly. He is going to start a prednisone taper in addition to doxycycline to make sure we took covered for atypicals. If the patient is no better in 48 hours or so should call the office and we should get an x-ray. He meantime will provide him also with some cough medicine. He can hold off on using the BiPAP specially well dealing with a cough. Once he recovers from this respiratory illness she can go back to using the BiPAP. The patient has a follow-up in May. If he has any issues prior to that he will call for an earlier assessment. 05/17/2024 the patient is here for a pulmonary follow-up visit. He is feeling better overall. Although he still having some shortness of breath with activity and feels that heaviness of the chest. He is currently on the Breo on continues with his rescue inhaler. The patient apparently did have a diagnosis of glaucoma 1 point therefore he is not taking any anticholinergics. This can be readdressed although I do believe he should have his eyes checked again to make sure that he is stable if ever considering any muscarinic antagonist therapy. In the meantime he does have evidence of obstruction his PFTs consistent with asthma COPD overlap syndrome. The patient also has evidence of chronic bronchitis. He has been requiring prednisone. Therefore, he be a good candidate for Daliresp. This will decrease need for prednisone and will treat his chronic bronchitis better. Will start him on 250 mcg in the increase to 500 mcg as long as he can tolerate. Also, the patient does have underlying allergies he does have eczema and history of chronic rhinitis and potentially hypertrophic turbinates it may be a good candidate for biologics such as Dupixent. Therefore, will consider this further if he does not show any improvement. He continues use a BiPAP every night. BiPAP therapy has been affecting beneficial. Seems like his AHI is well below 5 which is reassuring. And his using more than 4 hours a night. Will continue to use his therapy as prescribed. Will follow-up in 2-3 months. If the patient is having any worsening symptoms will call for an earlier assessment. [facility] Medical History (Updated 05/17/24 @ 20:02 by Elvis Jordan MD) Glaucoma Dyspnea Chronic cough Nasal polyps Asthma Complex sleep apnea syndrome MAYRA on CPAP Social History (Updated 05/17/24 @ 09:16 by Naheed Wall LPN) Patient Tobacco Use Status: Never used Tobacco Review of Systems Const Reports fatigue, Denies fever(s) and Reports weight gain Eyes Reports no additional complaints ENT Reports nasal congestion, Reports nasal discharge and Reports nasal obstruction Card Denies chest pain and Reports dyspnea on exertion Resp Denies change in phlegm color, Reports cough, Denies hemoptysis, Reports dyspnea on exertion and Reports wheezing GI Reports no additional complaints Musc Reports arthralgias and Reports limited range of motion Skin/Breast Denies rash Neuro Reports no additional complaints Endo Reports fatigue and Denies flushing Nahun/Lymph Denies easy bleeding and Denies easy bruising Aller/Immun Reports seasonal rhinorrhea and Reports wheezing Physical Exam Vital Signs: Last Vital Signs Pulse 72 05/17/24 09:08 BP 140/72 H 05/17/24 09:08 Pulse Ox 98 05/17/24 09:08 Oxygen Delivery Method Room Air 05/17/24 09:08 BMI result Body Mass Index 32.9 Const General: comfortable HEENT General nose exam: Abnormal mucous membranes and turbinates present erythematous and Nasal polyp present Throat: Yes cobblestoning Eyes General: appearance normal, both eyes and all related structures Neck Neck: Yes supple Chest Chest palpation & inspection: normal inspection of the chest Resp Effort & Inspection: normal respiratory effort and prolonged expiratory phase Auscultation: diminished lung sounds Cardio Rate: regular rate Rhythm: regular rhythm Heart sounds: S1 normal heart sound present and S2 normal heart sound present GI Auscultation: normal bowel sounds Skin Rashes: no rashes Extrem General: No clubbing and No cyanosis Assessment & Plan Assessment & Plan (1) Asthma: Code(s): J45.909 - Unspecified asthma, uncomplicated Category: Medical Qualifiers: Asthma complication type: with acute exacerbation Asthma persistence: persistent Asthma severity: moderate Qualified Code(s): J45.41 - Moderate persistent asthma with (acute) exacerbation (2) Bronchitis: Code(s): J40 - Bronchitis, not specified as acute or chronic Category: Medical (3) Complex sleep apnea syndrome: Code(s): G47.31 - Primary central sleep apnea Category: Medical (4) Nasal polyps: Code(s): J33.9 - Nasal polyp, unspecified Category: Medical (5) Glaucoma: Code(s): H40.9 - Unspecified glaucoma Category: Medical Qualifiers: Glaucoma type: unspecified Laterality: bilateral Qualified Code(s): H40.9 - Unspecified glaucoma (6) Dyspnea: Code(s): R06.00 - Dyspnea, unspecified Category: Medical Qualifiers: Dyspnea type: dyspnea on exertion Qualified Code(s): R06.09 - Other for ms of dyspnea Plan start Daliresp 250mcg continue CPT with acapella Albuterol via nebulizer BID as needed Breo 200 consider LAMA if eye pressures continue to be stable nasal sprays as per Allergy continue sinus saline rinsing continue BIPAP consider biologics weight management F/U 4 months Coding Level of Care Code Est Pt Level 4 (65117) Diagnoses Moderate persistent asthma with acute exacerbation J45.41 Asthma complication type: with acute exacerbation Asthma persistence: persistent Asthma severity: moderate Bronchitis J40 Complex sleep apnea syndrome G47.31 Nasal polyps J33.9 Glaucoma of both eyes, unspecified glaucoma type H40.9 Glaucoma type: unspecified Laterality: bilateral Dyspnea on exertion R06.09 Dyspnea type: dyspnea on exertion Time Spent (min) 17
== END 2024-05-17 09:37 | disposition home or self-care (01) ==
PROVIDERS: PCP Internal Medicine; Visit Provider Hospitalist
DX: J45.41 Moderate persistent asthma with (acute) exacerbation (principal); J40 Bronchitis, not specified as acute or chronic; G47.31 Primary central sleep apnea; J33.9 Nasal polyp, unspecified; H40.9 Unspecified glaucoma; R06.09 Other forms of dyspnea
CPT/HCPCS: 99214

== ENCOUNTER → 2024-05-17 09:06 | Outpatient (BNVA) | payer MEDICARE, SELFPAY | PROVIDERS: PCP Internal Medicine; Visit Provider Hospitalist | DX: J42 Unspecified chronic bronchitis (principal); J45.41 Moderate persistent asthma with (acute) exacerbation; G47.31 Primary central sleep apnea; J33.9 Nasal polyp, unspecified; H40.9 Unspecified glaucoma; R06.09 Other forms of dyspnea; Z99.89 Dependence on other enabling machines and devices; Z79.899 Other long term (current) drug therapy | CPT/HCPCS: 99212 ==

== ENCOUNTER 2024-11-01 09:41 | Outpatient (AMB) | payer MEDICARE, SELFPAY ==
[2024-11-01 09:43] VITALS: BP 146/98; PULSE 82; O2SAT 97; BMI 33.2
--- NOTE | 2024-11-01 09:43 | A.OFFVIS_ITS ---
Vital Signs 11/01/24 09:43 Height 5 ft 11 in Weight 238 lb 1.588 oz BMI 33.2 BP 146/98 H Blood Pressure Location Rt brachial Position Sitting Pulse 82 Pulse Source Pulse Oximeter Pulse Oximetry (%) 97 Oxygen Delivery Method Room Air Intake Visit Reasons: Sleep apnea Allergies Penicillins Allergy (Severe, Verified 11/01/24 09:47) Hives HPI Comments Details: The patient is a 68-year-old gentleman with known history or asthma nasal polyps and also sleep apnea. The patient had a sleep study back in 2011 at [facility]. It was an in-lab study at that time. He did have moderate to severe sleep apnea and had both obstructive and central apneas during that study. The patient was subsequently referred for titration study. He was titrated on CPAP and managed to have good stable control of his apnea with a CPAP of 11 cm. He has been on CPAP for many years. However, he has been having hard time with CPAP at this time. His current CPAP is set up AutoPAP 8-14. I did download the data. His average pressure is around 12 and average use is around 3.5 hours. His AHI still elevated at 7 with three episodes an hour of central sleep apnea. At this time he is having hard time tolerating it because of significant dry mouth. He does use a fullface mask. And still significantly dry mouth where he needs to stop using it and drink water and refill the tank. He runs out of water from the chamber every night. His current settings he has a regular sling line tubing and humidity is at 8. I did change the APAP to CPAP 11 with ramp of 6 and decreased Humidity to 4. His last sleep study was in 2011 and he is not active with a [employer]. He will need to undergo a repeat in lab PSG to re-evaluate his complex sleep apnea. EPWORH score 05/29. 09/30/2022 the patient is here for a pulmonary follow-up visit. Continues to struggle with his sleep apnea. Still having daytime drowsiness with an [place] score elevated 05/29. If with switch his CPAP to a CPAP 11 cm of water during the last visit. The AHI continues to be elevated although less central sleep apnea noted. Therefore, will going to increase his CPAP to 13 cm and is going to monitor closely for any worsening apneic episodes. The patient also needs to have a in-lab sleep study with hopeful titration study in order to requalify him for his sleep apnea in getting him new supplies from a [employer] company in addition to being able to titrate the pressures accordingly to treat his complex sleep apnea issue. The patient does have significant asthma and also nasal polyposis and atopic dermatitis. Unfortunately nasal polyps are affecting his ability to tolerate the PAP therapy. He is doing better with a fullface mask. Still consider biologic therapy such as Dupixent will be a good option for him. In the meantime he he is using the nasal therapies with the cortical steroids and also nasal rinsing. We also talked about adding budesonide to the Neti bottle in the future in order to help decrease the inflammation. Already he is already responding to the current regimen. Will have follow up after sleep study. If the patient has any issues prior to that he is to call for an appointment. 02/03/2023 patient is here for a pulmonary follow-up visit. Overall the patient seems to be doing little better. Still having daytime drowsiness. Caryville score still elevated 8/24. He did undergo a titration sleep study which recommended switching his APAP to a BiPAP with a pressure of 19/15. On that pressure we spent for about an hour during the study his AHI was 0 his oxygenation was okay and his central apneas also were under good control. Initially when he started using the BiPAP seems like his AHI is were normalized. Then subsequently something happened that his pressure started climbing. For the last 2 nights he has been doing better. He has been also struggling with the mask. Initially had a fullface mask F20 and then because of significant nasal bridge leakage she was switch over to an F 30. Still not getting a good seal and his mouth is popping out of the mask and therefore he is losing pressure. He is complaining of very dry mouth which is uncomfortable. His settings already maximum with humidity of 8 and a temperature of 82 F. I believe this is all related to position and mass where his AHI is Very variable. I did provide him with a different mask, AirTouch foam F20 large. We were able to get a good seal with this mask. Was comfortable for him. He does have facial hairs of the foam will be better keeping seal. I do believe that with the functional [place] mouth is unlikely going to be dry and he probably have to decrease the humidity and the temperature. We left the settings the same . If the patient would like to try VPAP auto he can also switch the machine over to an auto setting although this may worsen the central apneas potentially. In regards of his asthma seems to be in good control at this time with current medicine. Also he did follow-up with ENT and he had no more evidence of nasal polyposis which is reassuring. 05/22/2023 the patient is here for sick visit. The patient a worse cough the last 4 weeks. The cough is moderate to severe. He has gotten to coughing spells where he nearly passed out or even passed out. He also has had a coughing episodes where he gags and vomits. Is been pretty significant for him. The patient states that he is able to bring up some phlegm at times that is whitish in color. Denies any pleuritic chest pain. He has been using his inhaler. He did go up on the Treleg[place] to the [facility] to see if this was more effective. He did get the RCA vaccine. He also get the flu vaccine. He did test negative for COVID-19. The cough appears to be bronchospastic although diminished breath sounds bilaterally. Will go ahead and treat him with DuoNeb x2 and then we will reassess the respiratory examination. I did personally review the chest x-ray that he had a [facility] on May 18 demonstrating no acute disease. Does have significant scoliosis. 07/31/2023 the patient is here for pulmonary follow-up visit. Finally starting to feel better. He was struggling with a respiratory illness in the last time I saw him. Subsequently after that he was starting to get better and then started getting worse again. He was evaluated at [facility] for worsening shortness of breath and chest tightness. He was diagnosed with RSV his chest x-ray personally viewed appeared to be clear. He has been using his nebulizer regularly. Finally he is now off the prednisone and off all antibiotics. He is feeling better overall. Denies any congested cough although he still coughing and still feel some chest tightness. A my examination it is reassuring he does not have any significant wheezing at this time. I do not believe he needs additional steroids. He does plan to continue using the nebulizer and is Breo will be increased to a higher dose. If the patient is not improving or worsens he can always call for further Recommendations. As far as his BiPAP the BiPAP therapy has been affecting beneficial. He does use it every night for more than 4 hours a night in the therapy continues to be helpful. 04/11/2024 the patient is here for sick visit. Apparently 2 weeks ago he was exposed to sick contact with his grandson. started developing URI symptoms. And then subsequently after that started developing worsening asthma symptoms. Significant chest tightness and wheezing. And subsequently coughing. The coughing spells became worse and worse. the coughing spells were pretty is sporadic. But moderate severity. Affecting his sleep. He has taken mvpt-vpu-ghmouxq medications without any significant improvement. He has been using his inhalers in his nebulizer also with only partial improvement of the symptoms. Therefore could not tolerate the symptoms longer decided to come in. The patient was having significant coughing spells and did have some crackles on examination suggesting some degree of bronchiolitis. He was given 2 treatments with DuoNeb with some partial improvement. Subsequently because of the significant chest tightness and wheezing he did receive Solu-Medrol intramuscularly. He is going to start a prednisone taper in addition to doxycycline to make sure we took covered for atypicals. If the patient is no better in 48 hours or so should call the office and we should get an x-ray. He meantime will provide him also with some cough medicine. He can hold off on using the BiPAP specially well dealing with a cough. Once he recovers from this respiratory illness she can go back to using the BiPAP. The patient has a follow-up in May. If he has any issues prior to that he will call for an earlier assessment. 05/17/2024 the patient is here for a pulmonary follow-up visit. He is feeling better overall. Although he still having some shortness of breath with activity and feels that heaviness of the chest. He is currently on the Breo on continues with his rescue inhaler. The patient apparently did have a diagnosis of glaucoma 1 point therefore he is not taking any anticholinergics. This can be readdressed although I do believe he should have his eyes checked again to make sure that he is stable if ever considering any muscarinic antagonist therapy. In the meantime he does have evidence of obstruction his PFTs consistent with asthma COPD overlap syndrome. The patient also has evidence of chronic bronchitis. He has been requiring prednisone. Therefore, he be a good candidate for Daliresp. This will decrease need for prednisone and will treat his chronic bronchitis better. Will start him on 250 mcg in the increase to 500 mcg as long as he can tolerate. Also, the patient does have underlying allergies he does have eczema and history of chronic rhinitis and potentially hypertrophic turbinates it may be a good candidate for biologics such as Dupixent. Therefore, will consider this further if he does not show any improvement. He continues use a BiPAP every night. BiPAP therapy has been affecting beneficial. Seems like his AHI is well below 5 which is reassuring. And his using more than 4 hours a night. Will continue to use his therapy as prescribed. Will follow-up in 2-3 months. If the patient is having any wor sening symptoms will call for an earlier assessment. 11/01/2024 the patient is here for a pulmonary follow-up visit. Overall he is doing okay. He has had a bad bout of worsening respiratory symptoms back in September after being exposed to a sick contact. He started developing significant chest tightness cough. He did use his nebulizer machine and was able to take antibiotics and not need prednisone. Although he does not feel completely back to baseline. He has been on Breo. Unfortunately he does a history of glaucoma so we have to be careful with steroids in addition to anticholinergics. We did try to get him on Daliresp which would be a good option for him. However, his insurance still has an appeal on it. The patient may also be a good candidate for the Dupixent. He does have a history of nasal polyps and significant asthma. Will go ahead and request blood work at this time. In addition to that the patient may be also a good candidate for other alternative nebulized therapi es. The patient continues to have significant daytime drowsiness. Even with effective treatment with BiPAP. His AHI is down to 0.5. He has already had a TSH check and hemoglobin stable. No clear etiology for the symptoms of daytime drowsiness. It could be secondary to his allergies. Therefore if we can treat his allergies and asthma more optimize then we can see if this any improvement in his quality of life. If not then other options to consider stimulant as people that use PAP therapy can still have some degree of daytime drowsiness even after effective and therapeutic AHI. [facility] Medical History (Updated 11/01/24 @ 22:55 by Elvis Jordan MD) Glaucoma Dyspnea Chronic cough Nasal polyps Asthma Complex sleep apnea syndrome MAYRA on CPAP Social History Patient Tobacco Use Status: Never used Tobacco Review of Systems Const Reports daytime sleepiness, Reports fatigue, Denies fever(s) and Reports weight gain Eyes Reports no additional complaints ENT Reports nasal congestion, Reports nasal discharge and Reports nasal obstruction Card Denies chest pain and Reports dyspnea on exertion Resp Denies change in phlegm color, Reports cough, Denies hemoptysis, Reports dyspnea on exertion and Reports wheezing GI Reports no additional complaints Musc Reports arthralgias and Reports limited range of motion Skin/Breast Denies rash Neuro Reports no additional complaints Endo Reports fatigue and Denies flushing Nahun/Lymph Denies easy bleeding and Denies easy bruising Aller/Immun Reports seasonal rhinorrhea and Reports wheezing Physical Exam Vital Signs: Last Vital Signs Pulse 82 11/01/24 09:43 BP 146/98 H 11/01/24 09:43 Pulse Ox 97 11/01/24 09:43 Oxygen Delivery Method Room Air 11/01/24 09:43 BMI result Body Mass Index 33.2 Const General: comfortable HEENT General nose exam: Abnormal mucous membranes and turbinates present erythematous and Nasal polyp present Throat: Yes cobblestoning Eyes General: appearance normal, both eyes and all related structures Neck Neck: Yes supple Chest Chest palpation & inspection: normal inspection of the chest Resp Effort & Inspection: normal respiratory effort Auscultation: diminished lung sounds Cardio Rate: regular rate Rhythm: regular rhythm Heart sounds: S1 normal heart sound present and S2 normal heart sound present GI Auscultation: normal bowel sounds Skin Rashes: no rashes Extrem General: No clubbing and No cyanosis Assessment & Plan Assessment & Plan (1) Asthma: Code(s): J45.909 - Unspecified asthma, uncomplicated Category: Medical Qualifiers: Asthma complication type: uncomplicated Asthma persistence: persistent Asthma severity: moderate Qualified Code(s): J45.40 - Moderate persistent asthma, uncomplicated (2) Bronchitis: Code(s): J40 - Bronchitis, not specified as acute or chronic Category: Medical (3) Complex sleep apnea syndrome: Code(s): G47.31 - Primary central sleep apnea Category: Medical (4) Nasal polyps: Code(s): J33.9 - Nasal polyp, unspecified Category: Medical (5) Glaucoma: Code(s): H40.9 - Unspecified glaucoma Category: Medical Qualifiers: Glaucoma type: unspecified Laterality: bilateral Qualified Code(s): H40.9 - Unspecified glaucoma (6) Dyspnea: Code(s): R06.00 - Dyspnea, unspecified Category: Medical Qualifiers: Dyspnea type: dyspnea on exertion Qualified Code(s): R06.09 - Other forms of dyspnea Plan Denied Daliresp 250mcg, awaiting appeal Consider Ohtuvayre nebs continue CPT with acapella Albuterol via nebulizer BID as needed Breo 200 no LAMA if eye pressures continue to be stable nasal sprays as per Allergy continue sinus saline rinsing continue BIPAP, AHI 0.5 with persistent day time drowsiness consider biologics: We will repeat Bloodwork to assess Bloodwork weight management F/U 4 months Orders: Orders Venous Blood Gas Today J33.9 - Nasal polyp, unspecified, J45.41 - Moderate persistent asthma with (acute) exacerbation, R05.3 - Chronic cough Complete Blood Count Auto Diff Today J33.9 - Nasal polyp, unspecified, J45.41 - Moderate persistent asthma with (acute) exacerbation, R05.3 - Chronic cough Immunoglobulin E Today J33.9 - Nasal polyp, unspecified, J45.41 - Moderate persistent asthma with (acute) exacerbation, R05.3 - Chronic cough Hypersensitive Pneumonitis Prf Today J33.9 - Nasal polyp, unspecified, J45.41 - Moderate persistent asthma with (acute) exacerbation, R05.3 - Chronic cough, R91.8 - Other nonspecific abnormal finding of lung field Cortisol Random Today J33.9 - Nasal polyp, unspecified, J45.41 - Moderate persistent asthma with (acute) exacerbation, R05.3 - Chronic cough XR chest 2V Today J33.9 - Nasal polyp, unspecified, J45.41 - Moderate persistent asthma with (acute) exacerbation, R05.3 - Chronic cough Basic Metabolic Panel Today J33.9 - Nasal polyp, unspecified, J45.41 - Moderate persistent asthma with (acute) exacerbation, R05.3 - Chronic cough Immunoglobulins,IgG IgA IgM Today J33.9 - Nasal polyp, unspecified, J45.41 - Moderate persistent asthma with (acute) exacerbation, R05.3 - Chronic cough Erythrocyte Sedimentation Rate Today J33.9 - Nasal polyp, unspecified, J45.41 - Moderate persistent asthma with (acute) exacerbation, R05.3 - Chronic cough Coding Level of Care Code Est Pt Level 4 (29340) Complex EM visit Add On G2211 Diagnoses Moderate persistent asthma without complication J45.40 Asthma complication type: uncomplicated Asthma persistence: persistent Asthma severity: moderate Bronchitis J40 Complex sleep apnea syndrome G47.31 Nasal polyps J33.9 Glaucoma of both eyes, unspecified glaucoma type H40.9 Glaucoma type: unspecified Laterality: bilateral Dyspnea on exertion R06.09 Dyspnea type: dyspnea on exertion Time Spent (min) 20
--- OUTSIDE RECORDS SUMMARY | 2024-11-01 10:45 | XMS_ITS | Clinical Summary ---
Author Organization [facility] Address [address] [place] [address] Care Team Providers Care Chart Writer Name Role Phone Ronald Perez MD Primary Care Provider [phone] Medications EPINEPHrine (EPIPEN) 0.3 MG/0.3ML injection syringe 2 0 07/22/2022 Active predniSONE (DELTASONE) 20 MG tablet 7 0 07/23/2022 Active Fluticasone Propionate (Xhance) 93 MCG/ACT Exhaler Suspension INSTILL 1 SPRAY INTO EACH NOSTRIL TWICE DAILY 16 0 09/04/2022 Active Ciclopirox (PENLAC) 8 % solution 7 0 11/18/2022 Active Fluticasone Furoate-Vilante rol (Breo Ellipta) 100-25 MCG/ACT inhaler 180 0 12/10/2022 Active Active Problems Problem Noted Date Diagnosed Date Maxillary pain 12/22/2022 Allergic rhinitis 12/22/2022 Nasal septal deviation 12/22/2022 Immunizations Name Administration Dates Next Due COVID-19, mRNA (Pfizer Pre F 2022) Monovalent, 30 mcg/0.3 ml 05/01/2021,10/05/2020,09/14/2020 Covid-19, mRNA (Pfizer Comir mirella) Seasonal, 30 mcg/0.3 mL (12+) 04/15/2023 Covid-19, mRNA (Pfizer Pre F all 2022) Bivalent, 30 mcg/0.3 ml yi-sucrose (12+) dose 04/02/2022 Covid-19, mRNA (Pfizer Pre F all 2022) Monovalent, 30 mcg/0.3 ml yi-sucrose (12+) 11/09/2021 Influenza,high-dose, Quadrivalent 03/27/2023, Influenza,injectable,MDCK, Prsrv Fr,Quad 021,05/17/2020,03/23/2018 Influenza,injectable,quad,preservative 9 Influenza,seasonal,trivalent ,preservative (FLUZONE MDV) 04/17/2017,05/16/2016 PCV-13 04/25/2021 PCV-20 11/04/2022 PPV23 (Pneumovax) 03/03/2017 RSV Recombinant Adjuvant, 0.5 ML (Arexvy) 2022 Tdap 04/02/2022,09/04/2011 Zoster (Shingrix) 03/16/2019,11/22/2018 Social History Tobacco Use Types Packs/Day Years Used Date Smoking Tobacco: Never Assessed Sex and Gender Information Value Date Recorded Sex Assigned at Not on file Legal Sex Male 7:24 PM EDT Gender Identity Not on file Sexual Orientation Not on file Plan of Treatment Health Maintenance Due Date Last Done Comments Hepatitis C Screening 1955 Colon Cancer Screening 12/04/2000 COVID-19 Vaccine ( season) 2024 04/15/2023, 04/02/2022, 11/09/2021, Additional history exists Influenza (#1) 2024 03/27/2023, 03/07, 03/29/2021, Additional history exists DTaP/Tdap/Td (3 - Td or Tdap) 04/02/2032 04/02/2022, 09/04/2011 Zoster (Shingrix) Completed 03/16/2019, 11/22/2018 Pneumococcal 50+ years Completed 3, 04/25/2021, 03/03/2017 RSV Completed 04/18/2023 Abdominal Aorta Imaging Discontinued HPV Vaccine Aged Out No longer eligi ble based on patient's age to complete this topic Hep A Aged Out No longer eligi ble based on patient's age to complete this topic Hep B Aged Out No longer eligi ble based on patient's age to complete this topic Hib Aged Out No longer eligi ble based on patient's age to complete this topic Meningococcal ACWY Aged Out No longer eligible based on patient's age to complete this topic Zoster (Zostavax) Discontinued Care Teams Chart Writer Relationship Specialty Start Date End Date Ronald Perez MD [phone] [address] PCP - General 02/09/23
--- OUTSIDE RECORDS SUMMARY | 2024-11-01 10:45 | XMS_ITS | Clinical Summary ---
Author Organization [facility] Address [address] [place] [address] Care Team Providers Care Tin Whiz Machine Operator Name Role Phone Ashley Harrison MD Primary Care Provider [phone] Allergies Active Allergy Reactions Criticality Noted Date Comments Penicillins Hives Low 03/30/2020 Seasonal Other (See Comments) Medium 11/06/2020 runny nose , congestion, watery eyes Medications Medication Sig Dispensed Refills Start Date End Date Status amLODIPine (NORVASC) tablet 5 mg Take 5 mg by mouth every evening. 0 02/25/2020 Active BREO ELLIPTA 200-25 MCG/INH AEPB Inhale 1 puff into the lungs daily. 0 03/11/2020 Active propranolol (INDERAL) 60 MG tablet Take 60 mg by mouth daily. 0 01/22/2020 Active azelastine (ASTELIN) 0.1 % nasal spray spray or apply 2 sprays inside Nose 2 (two) times a day. Use in each nostril as directed 0 Active fluticasone (FLONASE) 50 MCG/ACT nasal spray spray/apply 1 spray in each nostril 2 (two) times a day. 0 Active Calcium Citrate-Vitamin D (CALCIUM + D PO) Take 1 tablet by mouth daily. 0 Active HYDROcodone-acetamin ophen (NORCO) 7.5-325 MG per tablet Take 1 tablet by mouth every 6 (six) hours as needed for pain. 20 tablet 0 11/06/2020 Active docusate sodium (COLACE) 100 MG capsule Take 1 capsule (100 mg total) by mouth 2 (two) times a day. 60 capsule 0 11/06/2020 Active Active Problems Problem Noted Date Diagnosed Date Primary osteoarthritis of left hip 11/06/2020 Primary osteoarthritis of right hip 04/10/2020 Social History Tobacco Use Types Packs/Day Years Used Date Smoking Tobacco: Never Smokeless Tobacco: Never Alcohol Use Standard Drinks/Week Comments Yes 6 (1 standard drink = 0.6 oz pur e alcohol) Sex and Gender Information Value Date Recorded Sex Assigned at Male 03/30/2020 1:15 PM EDT Gender Identity Male 03/30/2020 1:15 PM EDT Sexual Orientation Straight 04/10/2020 7: 34 AM EDT Job Start Date Occupation Industry Not on file Not on file Not on file Last Filed Vital Signs Vital Sign Reading Time Taken Comments Blood Pressure 105/69 11/07/2020 7:51 AM EDT Pulse 69 11/07/2020 7:51 AM EDT Temperature 37.4 ??C (99.3 ??F) 11/07/2020 7:51 AM ED T Respiratory Rate 18 11/07/2020 7:51 AM EDT Oxygen Saturation 97% 11/07/2020 7:51 AM EDT Inhaled Oxygen Concentration - - Weight 102.1 kg (225 lb) 11/06/2020 10:03 AM EDT Height 179.1 cm (5' 10.5 ) 11/06/2020 10:03 AM E DT Body Mass Index 31.83 11/06/2020 10:03 AM EDT Plan of Treatment Health Maintenance Due Date Last Done Comments Hepatitis C Screening 1955 COVID-19 Vaccine (#1) 06/05/1956 Depression Screening 1967 BMI Counseling 12/04/1973 Preventative Health Evaluation 12/04/1973 Colon Cancer Screening (Colonoscopy) 12/04/2000 Shingrix-Zoster Vaccine (2 of 2) 01/17/2019 11/22/2018 Fall Risk Assessment 12/04/2020 Pneumococcal Vaccine (2 of 2 - PCV) 12/04/2020 03/03/2017 DTap / Tdap / Td (2 - Td or Tdap) 09/03/2021 09/04/2011 Influenza Vaccine (#1) 2024 0, 03/23/2018, 04/17/2017, Additional history exists RSV Adult > 60+ Yrs or (1 - 1-dose 75+ series) 12/04/2030 Hepatitis B Vaccines Aged Out No long er eligible based on patient's age to complete this topic RSV Ped < 20 months Aged Out No longe r eligible based on patient's age to complete this topic Medical Devices Implanted Type Area Lobby Attendant Device Identifier Shelf Expiration Date Model / Serial / Lot Shell Trident Ii E 54mm Solid Back Tritanium Acetabular Hip - [id number] - [id number] Implanted:Qty: 1 on 04/10/2020 by Gunner Kent MD at [facility] Right: Hip [employer] [id number] 05/10/2024 700-04-54E / / [id number] Insert Trident 10d E 36mm X3 Acetabular Hip - 742975 - [id number] Implanted:Qty: 1 on 04/10/2020 by Gunner Kent MD at [facility] and [facility] Right: Hip [employer] [id number] 07/18/2024 623-10-36E / / [id number] Stem Citation 132d 6 140mm 32mm 15mm Purefix Tmzf Femoral - [id number] - [id number] Implanted:Qty: 1 on 04/10/2020 by Gunner Kent MD at [facility] Right: Hip [employer] [id number] 05/25/2022 8846-0425 / / [id number] Head V40 +7.5mm 36mm Biolox Delta Femoral Hip - 051330 - [id number] Implanted:Qty: 1 on 04/10/2020 by Gunner Kent MD at [facility] Right: Hip [employer] [id number] 09/26/2024 6570-0-736 / / [id number] Shell Trident Ii E 54mm Solid Back Tritanium Acetabular Hip - 865937 - [id number] Implanted:Qty: 1 on 11/06/2020 by Gunner Kent MD at [facility] Left: Hip [employer] [id number] 02/05/2024 700-04-54E / / [id number] Insert Trident 10d E 36mm X3 Acetabular Hip - 409236 - [id number] Implanted:Qty: 1 on 11/06/2020 by Gunner Kent MD at [facility] Left: Hip [employer] [id number] 07/29/2025 623-10-36E / / [id number] Stem Citation 132d 6 140mm 32mm 15mm Purefix Tmzf Femoral - [id number] - [id number] Implanted:Qty: 1 on 11/06/2020 by Gunner Kent MD at [facility] Left: Hip [employer] [id number] 11/22/2022 0217-1343 / / [id number] Head V40 +7.5mm 36mm Biolox Delta Femoral Hip - 365633 - [id number] Implanted:Qty: 1 on 11/06/2020 by Gunner Kent MD at [facility] Left: Hip [employer] [id number] 05/29/2025 6570-0-736 / / [id number] Advance Directives For more information, please contact: [phone] Documents on File Type Date Recorded Patient Processing Engineer Expl anation Advance Directive and Living Will 04/14/2020 2:32 PM Advance Directive and Living Will 04/10/2020 Latest Code Status on File Code Status Date Activated Date Inactivated Comments Full Code 11/06/2020 2:54 PM 11/07/2020 6:01 PM This co de status was ascertained in the following way: discussion with patient . Code Status History Code Status Date Activated Date Inactivated Comments Full Code 11/06/2020 9:37 AM 11/06/2020 2:54 PM This co de status was ascertained in the following way: discussion with patient . Full Code 04/10/2020 11:56 AM 04/11/2020 8:15 PM This code status was ascertained in the following way: discussion with patient . Full Code 04/10/2020 7:26 AM 04/10/2020 11:56 AM This code status was ascertained in the following way: discussion with patient . Care Teams Tin Whiz Machine Operator Relationship Specialty Start Date End Date Ashley Harrison MD PCP - General Internal Medicine 03/19/20
--- OUTSIDE RECORDS SUMMARY | 2024-11-01 10:45 | XMS_ITS | Clinical Summary ---
Author Organization [employer] [facility] ity Address [address] [place] [address] Care Team Providers Care Clinic Office Coordinator Name Role Phone Ashley Harrison MD Primary Care Provider [phone] Surgical History Surgery Date Site/Laterality Comments COLONOSCOPY 03/20/08 PROCEDURE: HISTORICAL COLONOSCOPY; COMMENT: adenoma and diverticulosis; repeat in five years COLONOSCOPY 08/05/2017 PROCEDURE: HISTORICAL COLONOSCOPY; COMMENT: negative Medical History Medical History Date Comments Compression fracture of thor acic vertebra (CMS/HCC V24, CMS/HCC V28) DX:Compression fracture of thoracic vertebra (HCC); COMMENT: t 12 in 2004 Intraocular hemorrhage DX:Intrao cular hemorrhage; COMMENT: Dr. Crawford Migraine DX:Migraine Family History Medical History Relation Name Comments Hypertension Father Hypertension Mother Relation Name Status Comments Father some heart issu e Mother Social History Tobacco Use Types Packs/Day Years Used Date Smoking Tobacco: Never Smokeless Tobacco: Never Alcohol Use Standard Drinks/Week Comments Yes 0 (1 standard drink = 0.6 oz pur e alcohol) Sex and Gender Information Value Date Recorded Sex Assigned at Not on file Legal Sex Male 9:41 PM EST Gender Identity Not on file Sexual Orientation Not on file Obstetrics History Plan of Treatment Health Maintenance Due Date Last Done Comments DTaP,Tdap,and Td Vaccines (1 - Tdap) 12/04/1974 Pneumococcal Vaccine: 50+ Ye ars (1 of 1 - PCV) 12/04/2005 Zoster Vaccines (1 of 2) 12/04/2005 Abdominal Aortic Aneurysm (A AA) Screen 06/12/2022 Cholesterol Screening (Lipid Panel) 06/12/2022 Colorectal Cancer Screening: Colonoscopy 06/12/2022 Depression Screening 06/12/2022 Falls Risk Assessment 06/12/2022 Hepatitis C Screening 06/12/2022 Social Influencers of Health Screening 06/12/2022 COVID-19 Vaccine (2023-2 5 season) 2024 Influenza Vaccine (Season Ended) 2025 RSV Immunization Adult Patitara nts (1 - 1-dose 75+ series) 12/04/2030 HIB Vaccines Aged Out No longer eligi ble based on patient's age to complete this topic HPV Vaccines Aged Out No longer eligi ble based on patient's age to complete this topic Hepatitis A Vaccines Aged Out No long er eligible based on patient's age to complete this topic Hepatitis B Vaccines Aged Out No long er eligible based on patient's age to complete this topic IPV Vaccines Aged Out No longer eligi ble based on patient's age to complete this topic MMR Vaccines Aged Out No longer eligi ble based on patient's age to complete this topic Meningococcal ACWY Vaccine Aged Out N o longer eligible based on patient's age to complete this topic Meningococcal B Vaccine Aged Out No l onger eligible based on patient's age to complete this topic RSV Immunization Patients Un berenice 20 months Aged Out No longer eligible b ased on patient's age to complete this topic Varicella Vaccines Aged Out No longer eligible based on patient's age to complete this topic Medical Devices Implanted Type Area Switch Operator Device Identifier Shelf Expiration Date Model / Serial / Lot Shell Trident Ii E 54mm Solid Back Tritanium Acetabular Hip - [id number] Implanted:Qty: 1 on 04/10/2020 by Gunner Kent MD Right: Hip [employer] [id number] 05/10/2024 700-04-54E / / [id number] Insert Trident 10d E 36mm X3 Acetabular Hip - [id number] Implanted:Qty: 1 on 04/10/2020 by Gunner Kent MD Right: Hip [employer] [id number] 07/18/2024 623-10-36E / / [id number] Stem Citation 132d 6 140mm 32mm 15mm Purefix Tmzf Femoral - [id number] Implanted:Qty: 1 on 04/10/2020 by Gunner Kent MD Right: Hip [employer] [id number] 05/25/2022 8273-8401 / / [id number] Head V40 +7.5mm 36mm Biolox Delta Femoral Hip - [id number] Implanted:Qty: 1 on 04/10/2020 by Gunner Kent MD Right: Hip [employer] [id number] 09/26/2024 6570-0-736 / / [id number] Shell Trident Ii E 54mm Solid Back Tritanium Acetabular Hip - [id number] Implanted:Qty: 1 on 11/06/2020 by Gunner Kent MD Left: Hip [employer] [id number] 02/05/2024 700-04-54E / / [id number] Insert Trident 10d E 36mm X3 Acetabular Hip - [id number] Implanted:Qty: 1 on 11/06/2020 by Gunner Kent MD Left: Hip [employer] [id number] 07/29/2025 623-10-36E / / [id number] Stem Citation 132d 6 140mm 32mm 15mm Purefix Tmzf Femoral - [id number] Implanted:Qty: 1 on 11/06/2020 by Gunner Kent MD Left: Hip [employer] [id number] 11/22/2022 6390-0003 / / [id number] Head V40 +7.5mm 36mm Biolox Delta Femoral Hip - [id number] Implanted:Qty: 1 on 11/06/2020 by Gunner Kent MD Left: Hip [employer] [id number] 05/29/2025 6570-0-736 / / [id number] Care Teams Clinic Office Coordinator Relationship Specialty Start Date End Date Ashley Harrison MD [address] [place] [address] PCP - General Internal Medicine 03/19/20
== END 2024-11-01 10:20 | disposition home or self-care (01) ==
LOC: HO.HPS 09:41
PROVIDERS: PCP Internal Medicine; Visit Provider Hospitalist
DX: J45.40 Moderate persistent asthma, uncomplicated (principal); J40 Bronchitis, not specified as acute or chronic; G47.31 Primary central sleep apnea; J33.9 Nasal polyp, unspecified; H40.9 Unspecified glaucoma; R06.09 Other forms of dyspnea
CPT/HCPCS: 99214; G2211

== ENCOUNTER 2024-11-01 09:41 | Outpatient (REF) | payer MEDICARE, SELFPAY ==
[2024-11-01 10:40] LABS: MANUAL DIFF FLAG NO
[2024-11-01 10:44] LABS: Venous Blood Gas Refer to POC result
[2024-11-01 10:50] LABS: VBG Base Excess 3.7 mmol/L; VBG HCO3 28 mmol/L (22-26); VBG pCO2 41 mmHg; VBG pH 7.43 (7.32-7.43); VBG pO2 69 mmHg
[2024-11-01 10:59] LABS: Basophils Percent Auto 0.4 % (0-2); Eosinophils Absolute Auto 0.2 X10*3/uL (0.0-0.4); Eosinophils Percent Auto 2.6 % (0-4); Hematocrit 46.1 % (42.0-52.0); Hemoglobin 15.2 g/dl (14.0-18.0); Imm Gran Abs Auto 0.04 X10*3/uL (0.00-0.03); Imm Gran Pct Auto 0.5 % (0.0-0.4); Lymphocytes Percent Auto 24.6 % (20-40); Mean Corpuscular Hemoglobin 30.4 pg (27.0-33.0); Mean Corpuscular Volume 92.2 fL (80.0-98.0); Mean Platelet Volume 9.5 fL (9.4-12.4); Monocytes Absolute Auto 0.7 X10*3/uL (0.1-1.2); Monocytes Percent Auto 8.6 % (2-11); Neutrophils Absolute Auto 5.2 x10*3/uL (2.0-8.3); Neutrophils Percent Auto 63.3 % (45-73); Platelet Count 239 X10*3/uL (160-400); Red Cell Distribution Width 14.6 % (11.0-16.0); White Blood Count 8.2 X10*3/uL (4.8-10.8)
[2024-11-01 11:30] LABS: Anion Gap 12 (12-20); Blood Urea Nitrogen 19 mg/dL (9-16); Calcium 10.1 mg/dL (8.4-10.2); Carbon Dioxide 27 mmol/L (22-29); Chloride 105 mmol/L (96-108); Estimated Glomerular Filt Rate 52; Glucose Random 98 mg/dL (60-115); Potassium 4.2 mmol/L (3.3-5.1); Sodium 140 mmol/L (135-145)
[2024-11-01 11:37] LABS: Erythrocyte Sedimentation Rate 6 MM/HR (0-15)
--- OUTSIDE RECORDS SUMMARY | 2024-11-01 11:55 | XMS_ITS | Clinical Summary ---
Author Organization [facility] Address [address] [place] [address] Care Team Providers Care Deposition Operator Name Role Phone Ashley Harrison MD Primary Care Provider [phone] Allergies Active Allergy Reactions Criticality Noted Date [...] this topic Medical Devices Implanted Type Area Blow Mold Machine Operator Device Identifier Shelf Expiration Date Model / Serial / Lot Shell Trident Ii E 54mm Solid Back Tritanium Acetabular Hip - 153066 - [id number] Implanted:Qty: 1 on 04/10/2020 by Gunner Kent MD at [facility] Right: Hip [employer] [id number] 05/10/2024 700-04-54E / / [id number] Insert Trident 10d E 36mm X3 Acetabular Hip - 947224 - [id number] Implanted:Qty: 1 on 04/10/2020 by Gunner Kent MD at [facility] Right: Hip [employer] [id number] 07/18/2024 623-10-36E / / [id number] Stem Citation 132d 6 140mm 32mm 15mm Purefix Tmzf Femoral - 642033 - [id number] Implanted:Qty: 1 on 04/10/2020 by Gunner Kent MD at [facility] Right: Hip [employer] [id number] 05/25/2022 6006-0836 / / [id number] Head V40 +7.5mm 36mm Biolox Delta Femoral Hip - 914381 - [id number] Implanted:Qty: 1 on 04/10/2020 by Gunner Kent MD at [facility] Right: Hip [employer] [id number] 09/26/2024 6570-0-736 / / [id number] Shell Trident Ii E 54mm Solid Back Tritanium Acetabular Hip - 273027 - [id number] Implanted:Qty: 1 on 11/06/2020 by Gunner Kent MD at [facility] Left: Hip [employer] [id number] 02/05/2024 700-04-54E / / [id number] Insert Trident 10d E 36mm X3 Acetabular Hip - 446899 - [id number] Implanted:Qty: 1 on 11/06/2020 by Gunner Kent MD at [facility] Left: Hip [employer] [id number] 07/29/2025 623-10-36E / / [id number] Stem Citation 132d 6 140mm 32mm 15mm Purefix Tmzf Femoral - [id number] - [id number] Implanted:Qty: 1 on 11/06/2020 by Gunner Kent MD at [facility] Left: Hip [employer] [id number] 11/22/2022 4047-9552 / / [id number] Head V40 +7.5mm 36mm Biolox Delta Femoral Hip - 079867 - [id number] Implanted:Qty: 1 on 11/06/2020 by Gunner Kent MD at [facility] Left: Hip [employer] [id number] 05/29/2025 6570-0-736 / / [id number] Advance Directives For more information, please contact: [phone] Documents on File Type Date Recorded Patient Clinical Specialist Expl anation Advance Directive and Living Will [...] way: discussion with patient . Care Teams Deposition Operator Relationship Specialty Start Date End Date Ashley Harrison MD PCP - General Internal Medicine 03/19/20
--- OUTSIDE RECORDS SUMMARY | 2024-11-01 11:55 | XMS_ITS | Clinical Summary ---
Author Organization [facility] Address [address] [place] [address] Care Team Providers Care Salon Designer Name Role Phone Ronald Perez MD Primary Care Provider Medications EPINEPHrine (EPIPEN) 0.3 MG/0.3ML injection syringe [...] this topic Zoster (Zostavax) Discontinued Care Teams Salon Designer Relationship Specialty Start Date End Date Ronald Perez MD [address] [address] PCP - General 02/09/23
--- OUTSIDE RECORDS SUMMARY | 2024-11-01 11:55 | XMS_ITS | Clinical Summary ---
Author Organization [email or web address] [facility] ity Address [address] [place] [address] Care Team Providers Care Relay Shop Tester Name Role Phone Ashley Harrison MD Primary Care Provider Surgical History Surgery Date Site/Laterality Comments COLONOSCOPY [...] this topic Medical Devices Implanted Type Area Kiln Door Builder Device Identifier Shelf Expiration Date Model / Serial / Lot Shell Trident Ii E 54mm Solid Back Tritanium Acetabular Hip - [id number] Implanted:Qty: 1 on 04/10/2020 by Gunner Kent MD Right: Hip [employer] [id number] 05/10/2024 700-04-54E / / [id number] Insert Trident 10d E 36mm X3 Acetabular Hip - [id number] Implanted:Qty: 1 on 04/10/2020 by Gunner Kent MD Right: Hip [employer] [id number] 07/18/2024 623-10-36E / / [id number] Stem Citation 132d 6 140mm 32mm 15mm Purefix Tmzf Femoral - [id number] Implanted:Qty: 1 on 04/10/2020 by Gunner Kent MD Right: Hip [employer] [id number] 05/25/2022 1770-1054 / / [id number] Head V40 +7.5mm 36mm Biolox Delta Femoral Hip - [id number] Implanted:Qty: 1 on 04/10/2020 by Gunner Kent MD Right: Hip [employer] [id number] 09/26/2024 6570-0-736 / / [id number] Shell Trident Ii E 54mm Solid Back Tritanium Acetabular Hip - [id number] Implanted:Qty: 1 on 11/06/2020 by Gunner Kent MD Left: Hip [employer] [id number] 02/05/2024 700-04-54E / / [id number] Insert Trident 10d E 36mm X3 Acetabular Hip - [id number] Implanted:Qty: 1 on 11/06/2020 by Gunner Kent MD Left: Hip [employer] [id number] 07/29/2025 623-10-36E / / [id number] Stem Citation 132d 6 140mm 32mm 15mm Purefix Tmzf Femoral - [id number] Implanted:Qty: 1 on 11/06/2020 by Gunner Kent MD Left: Hip [employer] [id number] 11/22/2022 7030-5406 / / [id number] Head V40 +7.5mm 36mm Biolox Delta Femoral Hip - [id number] Implanted:Qty: 1 on 11/06/2020 by Gunner Kent MD Left: Hip [employer] [id number] 05/29/2025 6570-0-736 / / [id number] Care Teams Relay Shop Tester Relationship Specialty Start Date End Date Ashley Harrison MD [address] [place] [address] PCP - General Internal Medicine 03/19/20
--- OUTSIDE RECORDS SUMMARY | 2024-11-01 11:55 | XMS_ITS ---
Author Name [facility] Organization Unknown Encounters Encounter Type Encounter Reason Primary Diagnosis Location Date Ambulatory [facility] 11/2022 Care Team Organization Name Specialty Phone Email Start Date End Da te [facility] 02/02/2023 02/02/2023 [facility] Ana [facility] 11/07/2022 03/10/2024
[2024-11-02 23:28] LABS: Immunoglobulin E 328 kU/L (<OR=114)
[2024-11-06 22:08] LABS: IgA 186 mg/dL (70-320); IgG 904 mg/dL (600-1540); IgM 43 mg/dL (50-300)
[2024-11-07 06:13] LABS: Asperg fumigatus Precip Abs NEGATIVE (NEGATIVE); Micropoly faeni Abs NEGATIVE (NEGATIVE); Pigeon serum Abs NEGATIVE (NEGATIVE); Saccharo pora viridis Abs NEGATIVE (NEGATIVE); Thermo candidus Abs NEGATIVE (NEGATIVE); Thermoa vulgaris #1 NEGATIVE (NEGATIVE)
== END 2024-11-01 09:42 | disposition home or self-care (01) ==
LOC: HO.LAB 09:41
PROVIDERS: PCP Internal Medicine; Visit Provider Hospitalist
DX: J45.41 Moderate persistent asthma with (acute) exacerbation (principal); J33.9 Nasal polyp, unspecified; R05.3 Chronic cough; R91.8 Other nonspecific abnormal finding of lung field
CPT/HCPCS: 36415; 80048; 82533; 82784; 82785; 82803; 85025; 85652; 86331; 86606; 86609; 99212

== ENCOUNTER 2024-11-23 09:29 | Outpatient (AMB) | payer MEDICARE, SELFPAY ==
--- OUTSIDE RECORDS SUMMARY | 2024-11-23 10:45 | XMS_ITS | Patient Health Record ---
Author Organization [facility] Address [address] [facility] [address] [facility] [place] [address] Care Team Providers Care Assistant To The Director Name Role Phone ChristyMonikaLilaginette Primary Care Provider UnavailSRUTHI Bullard Unavailable [phone] Allergies Allergen (clinical drug ingredient) Drug/Non Drug Allergy documented on EMR Reaction Allergy Type Onset Date Status Penicillin Unknown Drug Allergy Active Reason For Referral No Information Medications Medication SIG (Take, Route, Frequency, Duration) Notes Start Date End Date Status Ciclopirox 8 % 1 application Externally to toenail Once a day for 365 days 11/18/2022 Not-Taking Propranolol HCl 60 MG 1 tablet Orally On ce a day Active Imitrex 50 MG 1 tablet at least 2 hours between doses as needed Orally Twice a day Active Breo Ellipta 100-25 MCG/ACT 1 puff Inhalation Once a day Active amLODIPine Besylate 5 MG 1 tablet Orally Once a day Active Albuterol Sulfate 108 (90 Base) MCG/ACT 1 puff as needed Inhalation every 4 hrs Active Naftifine HCl 1 % 1 application Externally once a day for 90 days 05/26/2023 Not-Taking Nystatin 031415 UNIT/GM 1 application to the left big toenail Externally once daily for 90 days 05/27/2023 Active Terbinafine 1% cream Not-Taki ng Fluticasone Propionate (Inhal) 50 MCG/ACT 1 puff Inhalation Twice a day Not-Taking Terbinafine & Miconazole 250 & 2 MG & % as directed Externally once daily for 90 days 12/16/2023 Active Vital Signs Heart Rate 61 /min 12/16/2023 Temperature 96.9 degrees Fahrenheit 12/16/2023 Respiratory Rate 16 /min 12/16/2023 Height 5ft 10in in 12/16/2023 Weight 236.9 lbs 12/16/2023 BMI 33.99 kg/m2 12/16/2023 Encounters Encounter Location Date Provider Diagnosis [facility] [address] [address] 12/16/2023 SRUTHI ROGERS Onychomycosis B35.1 ; 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 ; Pain around toenail, left foot M79.675 and Pain around toenail, right foot M79.674 [facility] [address] [address] 12/16/2023 SRUTHI ROGERS Assessments Encounter Date Diagnosis (ICD Code) Assessment Notes Treatment Notes Treatment Clinical Notes Section Notes 12/16/2023 Onychomycosis (ICD-10 - B35.1) Patient was seen and examined, history reviewed. Educated the patient on fungal toenail infections and the difficulty of treating them. Treatment options include topical medications and oral medications. Patient was educated that trauma to the nail bed can also cause a fungal like appearance to the nail, however there are no treatment option to normalize the nail plate in this instance. We also discussed how inflammatory issues, vitamin deficiencies, vascular issues and medications can change the nail plate as well. Patient understood. Advised patient that it can take about 12 months for the toenail(s) to improve with treatment, and that recurrence is common. Oral medications were discussed. All risks of taking oral antifungals were reviewed which included liver toxicity and failure, along with GI upset, rash, headache/dizzine ss, and unusual taste/loss of taste. Patient advised to watch for nausea, vomiting, abdominal pain, loose stools, and jaundice while on medication. If any symptoms do occur, patient should stop taking the medication immediately and contact the office. Baseline hepatic function tests are monitored when taking oral antifungal medications. Topical antifungals were discussed with the patient as well. Advised that these need to be used daily to the affected nails. They are less effective in eradicating the fungal infection than the oral medication, but have minimal side effects. He has 97% improvement of the toenail after 6 months. I recommended he continue using the terbinafine and the nystatin to the toenail for another 3-6 months daily. After that time, I recommended he apply the medication periodically to prevent recurrence. RX for terbinafine 2% sent to the pharmacy. 12/16/2023 Acquired deformity of toenail (ICD-10 - L60.8) 12/16/2023 Pain around toenail, left foot (ICD-10 - M79.675) 12/16/2023 Pain around toenail, right foot (ICD-10 - M79.674) Plan Of Treatment No Information Insurance Providers Payer Name Payer Address Payer Phone Subscriber Number Group Number Insured Name Patient Relationship to Insured Coverage Start Date Coverage End Date [employer] of [place] [address] [place] [phone] [id number] Kyleigh Jarrell pacheco Self - patient is the insured [employer] [facility] [address] [place] [address] [phone] [id number] Jarrell Murphy Self - patient is the insured Medical (General) History Medical History History ICD Code allergic rhinitis hypertension migraines moderate persistent asthma osteoarthritis of left hip joint - s/p T HR osteoarthritis of right hip joint- s/p T HR severe obesity (BMI 35.0-39.9) with negrita rbidity sleep apnea idiopathic essential tremor COVID vaccinated X 5 + COVID 04/2022 skin rashes Chronic thoracic spine pain seasonal allergies Surgical History Surgery Date(Month/Year) bilateral hip replacement Hospitalization History Reason Date(Month/Year) bilateral hip replacement
--- OUTSIDE RECORDS SUMMARY | 2024-11-23 10:45 | XMS_ITS | Clinical Summary ---
Author Organization [facility] Address [address] [place] [address] Care Team Providers Care Retort Furnace Operator Name Role Phone Ashley Harrison MD Primary Care Provider [phone] Allergies Active Allergy Reactions Criticality Noted Date [...] this topic Medical Devices Implanted Type Area Furnace Mechanic Helper Device Identifier Shelf Expiration Date Model / Serial / Lot Shell Trident Ii E 54mm Solid Back Tritanium Acetabular Hip - [id number] - [id number] Implanted:Qty: 1 on 04/10/2020 by Gunner Kent MD at [facility] Right: Hip [employer] [id number] 05/10/2024 700-04-54E / / [id number] Insert Trident 10d E 36mm X3 Acetabular Hip - [id number] - [id number] Implanted:Qty: 1 on 04/10/2020 by Gunner Kent MD at [facility] and [facility] Right: Hip [employer] [id number] 07/18/2024 623-10-36E / / [id number] Stem Citation 132d 6 140mm 32mm 15mm Purefix Tmzf Femoral - [id number] - [id number] Implanted:Qty: 1 on 04/10/2020 by Gunner Kent MD at [facility] and [facility] Right: Hip [employer] [id number] 05/25/2022 2643-6802 / / [id number] Head V40 +7.5mm 36mm Biolox Delta Femoral Hip - [id number] - [id number] Implanted:Qty: 1 on 04/10/2020 by Gunner Kent MD at [facility] Right: Hip [employer] [id number] 09/26/2024 6570-0-736 / / [id number] Shell Trident Ii E 54mm Solid Back Tritanium Acetabular Hip - [id number] - [id number] Implanted:Qty: 1 on 11/06/2020 by Gunner Kent MD at [facility] Left: Hip [employer] [id number] 02/05/2024 700-04-54E / / [id number] Insert Trident 10d E 36mm X3 Acetabular Hip - [id number] - [id number] Implanted:Qty: 1 on 11/06/2020 by Gunner Kent MD at [facility] Left: Hip [employer] [id number] 07/29/2025 623-10-36E / / [id number] Stem Citation 132d 6 140mm 32mm 15mm Purefix Tmzf Femoral - [id number] - [id number] Implanted:Qty: 1 on 11/06/2020 by Gunner Kent MD at [facility] Left: Hip [employer] [id number] 11/22/2022 9050-8590 / / [id number] Head V40 +7.5mm 36mm Biolox Delta Femoral Hip - [id number] - [id number] Implanted:Qty: 1 on 11/06/2020 by Gunner Kent MD at [facility] Left: Hip [employer] [id number] 05/29/2025 6570-0-736 / / [id number] Advance Directives For more information, please contact: [phone] Documents on File Type Date Recorded Patient Heat Treater Expl anation Advance Directive and Living Will [...] way: discussion with patient . Care Teams Retort Furnace Operator Relationship Specialty Start Date End Date Ashley Harrison MD PCP - General Internal Medicine 03/19/20
--- OUTSIDE RECORDS SUMMARY | 2024-11-23 10:45 | XMS_ITS ---
Author Organization [facility] Address [address] [facility] [place] [address] [place] [address] Care Team Providers Care Equine Intern Name Role Phone ChristyMonikaLilaginette Primary Care Provider Unavailab MICHELLE Narvaez Unavailable [phone] Allergies Allergen (clinical drug ingredient) Drug/Non Drug Allergy documented on EMR Reaction Allergy Type Onset Date Status Penicillin Unknown Drug Allergy Active REASON FOR VISIT 6 month f/u Medications Medication SIG (Take, Route, Frequency, Duration) Notes Start Date End Date Status Albuterol Sulfate 108 (90 Base) MCG/ACT 1 puff as needed Inhalation every 4 hrs Active Naftifine HCl 1 % 1 application Externally once a day for 90 days 05/26/2023 Not-Taking Nystatin 580399 UNIT/GM 1 application to the left big toenail Externally once daily for 90 days 05/27/2023 Active Terbinafine 1% cream Not-Taki ng Fluticasone Propionate (Inhal) 50 MCG/ACT 1 puff Inhalation Twice a day Not-Taking Ciclopirox 8 % 1 application Externally to [...] 1 tablet Orally Once a day Active Terbinafine & Miconazole 250 & 2 MG & % as directed Externally once daily for 90 days 12/16/2023 Active Vital Signs Temperature 96.9 degrees Fahrenheit 12/16/19 24 Heart Rate 61 /min 12/16/2023 Respiratory Rate 16 /min 12/16/2023 Height 5ft 10in in 12/16/2023 Weight 236.9 lbs 12/16/2023 BMI 33.99 kg/m2 12/16/2023 Encounters Encounter Location Date Provider Diagnosis [facility] [address] [facility] [place] [address] [place] [address] 12/16/2023 MICHELLE CHATTERJEE Onychomycosis B35.1 ; 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 ; Pain around toenail, left foot M79.675 and Pain around toenail, right foot M79.674 Assessments Encounter Date Diagnosis (ICD Code) Assessment [...] foot (ICD-10 - M79.674) Plan Of Treatment Medication Medication Name Sig Start Date Stop Date Notes Terbinafine & Miconazole 250 & 2 MG & % as directed Externally once daily for 90 days 12/16/2023 Next Appt Details Follow Up: prn, Reason: Progress Notes * Jarrell PEREZ LDOB:1955 (68 yo M)Acc No.[id number]:12/16/2023 Progress Note Patient:?Jarrell PEREZ Provider:?Michelle Chatterjee DPM :1955???Age:68 Y???Sex:Male Tay e:12/16/2023 Phone: Address:[address] [place], [place] [address]JEMAL LIVE, [facility] [place], [id number] Pcp:Paul Harrison Subjective: * Chief Complaints: * ???6 month f/u * HPI: ???Constitutional:? This 68 y/o male returns to the office as a follow-up to toenail fungus. He had been using Terbinafine 1% cream to the toenail with the Nystatin. He feels the toenail is about 97% improved. He has no other foot complaints this visit. * ROS:?General/Constitutional:?Denies?Chills.?Denies?Fatigue.?Denies?Fever.?Denies?Headache.?Allergy/Immunology:?Denies?Hives.?Denies?Itching.?Denies?Rash.?Endocrine:?Denies?Excessive sweating.?Denies?Excessive thirst.?Denies?Frequent urination.?Respiratory:?Denies?Cough.?Denies?Shortness of breath,?denies.?Denies?Wheezing.?Cardiovascular:?Denies?Chest pain.?Denies?Claudication.?Denies?Cyanosis.?Gastrointestinal:?Denies?Abdominal pain.?Denies?Constipation.?Denies?Diarrhea.?Hematology:?Denies?Bleeding problems,?denies.?Denies?Easy bruising,?denies.?Denies?Swollen glands.?Musculoskeletal:?Admits?Back problems.?Denies?History of Gout.?Denies?Leg cramps.?Peripheral Vascular:?Denies?Blanching of skin.?Blood clots in legs?Denies.?Denies?Cold extremities.?Skin:?Denies?Masses.?Admits?Nail changes,?left great toenail discoloration.?.?Denies?Skin lesion(s).?Neurologic:?Denies?Paralysis.?Denies?Tingling/Numbness.?Denies?Tremor.?Psychiatric:?Denies?Auditory/visual hallucinations.?Denies?Delusions.?Denies?Suicidal thoughts.? * Medical History:? * Surgical History:?bilateral hip replacement * Hospitalization/Major Diagno stic Procedure:?bilateral hip replacement * Family History:?Maternal aun t: diabetes.? * Social History:?Tobacco: never Alcohol: yes, 1-2 times per week Type: beer Retired Psychologist. * Medications:?TakingPropranol ol HCl 60 MG Tablet 1 tablet Orally Once a day Imitrex 50 MG Tablet 1 tablet at least 2 hours between doses as needed Orally Twice a day Breo Ellipta 100-25 MCG/ACT Aerosol Powder Breath Activated 1 puff Inhalation Once a day amLODIPine Besylate 5 MG Tablet 1 tablet Orally Once a day Albuterol Sulfate 108 (90 Base) MCG/ACT Aerosol Powder Breath Activated 1 puff as needed Inhalation every 4 hrs Nystatin 653627 UNIT/GM Ointment 1 application to the left big toenail Externally once daily Taking Propranolol HCl 60 MG Tablet 1 tablet Orally Once a day Taking Imitrex 50 MG Tablet 1 tablet at least 2 hours between doses as needed Orally Twice a day Taking Breo Ellipta 100-25 MCG/ACT Aerosol Powder Breath Activated 1 puff Inhalation Once a day Taking amLODIPine Besylate 5 MG Tablet 1 tablet Orally Once a day Taking Albuterol Sulfate 108 (90 Base) MCG/ACT Aerosol Powder Breath Activated 1 puff as needed Inhalation every 4 hrs Taking Nystatin 658628 UNIT/GM Ointment 1 application to the left big toenail Externally once daily Not-TakingCiclopirox 8 % Solution 1 application Externally to toenail Once a day Naftifine HCl 1 % Gel 1 application Externally once a day Terbinafine , Notes to Pharmacist: 1% creamFluticasone Propionate (Inhal) 50 MCG/ACT Aerosol Powder Breath Activated 1 puff Inhalation Twice a day Medication List reviewed and reconciled with the patientNot-Taking Ciclopirox 8 % Solution 1 application Externally to toenail Once a day Not-Taking Naftifine HCl 1 % Gel 1 application Externally once a day Not- Taking Terbinafine , Notes to Pharmacist: 1% creamNot-Taking Fluticasone Propionate (Inhal) 50 MCG/ACT Aerosol Powder Breath Activated 1 puff Inhalation Twice a day Medication List reviewed and reconciled with the patient * Allergies:?Penicillinno[Stewart rgies Verified] Objective: * Vitals:?Wt:236.9lbs, Ht: 5ft 10in, BMI:33.99Index, HR:61/min, Temp:96.9F, RR:16/min, Ht-cm: 177.8, Wt-k.46 kg. * Examination: ???General Examination: ???This is an elderly male. Alert and oriented today and in no acute distress. Patient comes in ambulating in sneakers without using any assistive devices. Breathing is regular and unlabored while sitting. Affect is pleasant and cooperative. No unusual anxiety or depression noted. Hearing intact to spoken word. No evidence of visual impairment that would impact self care or ambulation. Patient has palpable dorsalis pedis and posterior tibial pulse bilaterally. Small spider like varicosities. Capillary refill is less than 3 seconds to all digits bilaterally. Light touch sensation is symmetrical to all lower extremity dermatomes. Babinski is downgoing. Skin has normal turgor and texture. There are no open wounds, rashes, or lesions noted. The left hallux toenail has yellow discoloration distally. The nail has slight increase in the plate thickness. There is no onycholysis. No erythema, edema, or drainage from the nail folds. There is no tenderness to the medial distal borders of the left and right hallux toenails without obvious onychocryptosis. Subtalar and ankle joint range of motion are unrestricted. 5/5 strength for anterior, posterior, and lateral lower extremity muscle groups on the left and right. No muscle atrophy noted. 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 Plan: * Treatment: * Procedure Codes:? * Follow Up:?prn * Billing Information: * Visit Code:? 25859 Office Visit, Est Pt., Level 3. * Procedure Codes:? * Sign off status: Completed true * Provider:?Michelle Chatterjee DPM Date:? 12/16/2023 Generated for Annabelle sahu/Comfort/Harley on:?11/23/2024 10:45 AM EDT History and Physical Notes * HPI (History of Present Illness) Category Sub-Category Detail Notes Category Not es Constitutional This 68 y/o m jemal returns to the office as a follow-up to toenail fungus. He had been using Terbinafine 1% cream to the toenail with the Nystatin. He feels the toenail is about 97% improved. He has no other foot complaints this visit. Examination Category Sub-Category Detail Notes Category Not es General Examination This is an elderly male. Alert and oriented today and in no acute distress. Patient comes in ambulating in sneakers without using any assistive devices. Breathing is regular and unlabored while sitting. Affect is pleasant and cooperative. No unusual anxiety or depression noted. Hearing intact to spoken word. No evidence of visual impairment that would impact self care or ambulation. Patient has palpable dorsalis pedis and posterior tibial pulse bilaterally. Small spider like varicosities. Capillary refill is less than 3 seconds to all digits bilaterally. Light touch sensation is symmetrical to all lower extremity dermatomes. Babinski is downgoing. Skin has normal turgor and texture. There are no open wounds, rashes, or lesions noted. The left hallux toenail has yellow discoloration distally. The nail has slight increase in the plate thickness. There is no onycholysis. No erythema, edema, or drainage from the nail folds. There is no tenderness to the medial distal borders of the left and right hallux toenails without obvious onychocryptosis. Subtalar and ankle joint range of motion are unrestricted. 5/5 strength for anterior, posterior, and lateral lower extremity muscle groups on the left and right. No muscle atrophy noted.
--- OUTSIDE RECORDS SUMMARY | 2024-11-23 10:45 | XMS_ITS ---
Author Organization [facility] Address [address] [address] Care Team Providers Care Counterintelligence Agent Name Role Phone Paul Harrison Primary Care Provider Unavailab MICHELLE Narvaez Unavailable [phone] REASON FOR VISIT 6 month f/u Encounters Encounter Location Date Provider Diagnosis [facility] [address] [address] 11/25/2023 MICHELLE CHATTERJEE Plan Of Treatment No Information Progress Notes * Jarrell PEREZ LDOB:1955 (68 yo M)Acc No.[id number]:11/25/2023 Progress Note Patient:?Jarrell PEREZ Provider:?Michelle Chatterjee DPM :1955???Age:67 Y???Sex:Male Tay e:11/25/2023 Phone: Address:[address] [id number] Pcp:Paul Harrison Subjective: * Chief Complaints: * ???1. 6 month f/u. * Medical History:? Objective: * Vitals:? Assessment: Plan: * Treatment: * Billing Information: * Visit Code:? * Procedure Codes:? * Electronic signature of CAROL CHATTERJEE D.P.M on 11/23/2024 at 10:45 AM EDT Sign off status: Pending * Provider:Malu Chatterjee DPM Date:? 11/25/2023 Generated for Maddiei ng/Fadotg/eTransmitting on:?11/23/2024 10:45 AM EDT
--- OUTSIDE RECORDS SUMMARY | 2024-11-23 10:45 | XMS_ITS | Clinical Summary ---
Author Organization [facility] Address [address] [place] [address] Care Team Providers Care Electrical Inspector Name Role Phone Ronald Perez MD Primary Care Provider [phone] Medications EPINEPHrine (EPIPEN) 0.3 MG/0.3ML injection syringe [...] this topic Zoster (Zostavax) Discontinued Care Teams Electrical Inspector Relationship Specialty Start Date End Date Ronald Perez MD [address] [address] PCP - General 02/09/23
--- OUTSIDE RECORDS SUMMARY | 2024-11-23 10:45 | XMS_ITS ---
Author Organization [facility] Address [address] [address] Care Team Providers Care Free Lance Artist Name Role Phone Paul Harrison Primary Care Provider Unavailab SRUTHI Narvaez Unavailable [phone] REASON FOR VISIT RX Encounters Encounter Location Date Provider Diagnosis [facility] [address] [address] 12/16/2023 SRUTHI ROGERS Plan Of Treatment No Information Progress Notes * Jarrell PEREZ LDOB:1955 (68 yo M)Acc No.[id number]:12/16/2023 Patient:?Jarrell PEREZ :1955???Age:68 Y???Sex:Male Phone: Address:[place] [address] * true * Date:? Generated for Maddiei luis alberto/Comfort/eTransmitting on:?11/23/2024 10:45 AM EDT
--- OUTSIDE RECORDS SUMMARY | 2024-11-23 10:45 | XMS_ITS | Clinical Summary ---
Author Organization [facility] Address [address] [place] [address] Care Team Providers Care New Car Get Ready Mechanic Name Role Phone Ashley Harrison MD Primary Care Provider [phone] Surgical History Surgery Date Site/Laterality Comments COLONOSCOPY [...] this topic Medical Devices Implanted Type Area Casting And Locker Room Servicer Device Identifier Shelf Expiration Date Model / Serial / Lot Shell Trident Ii E 54mm Solid Back Tritanium Acetabular Hip - [id number] Implanted:Qty: 1 on 04/10/2020 by Gunner Kent MD Right: Hip [employer] [id number] 05/10/2024 700-04-54E / / [id number] Insert Trident 10d E 36mm X3 Acetabular Hip - [id number] Implanted:Qty: 1 on 04/10/2020 by Gunner Kent MD Right: Hip [employer] [id number] 07/18/2024 623-10-36E / / [id number] Stem Citation 132d 6 140mm 32mm 15mm Purefix Tmzf Femoral - [id number] Implanted:Qty: 1 on 04/10/2020 by Gunner Kent MD Right: Hip [employer] [id number] 05/25/2022 9779-9009 / / [id number] Head V40 +7.5mm 36mm Biolox Delta Femoral Hip - [id number] Implanted:Qty: 1 on 04/10/2020 by Gunner Kent MD Right: Hip [employer] [id number] 09/26/2024 6570-0-736 / / [id number] Shell Trident Ii E 54mm Solid Back Tritanium Acetabular Hip - [id number] Implanted:Qty: 1 on 11/06/2020 by Gunner Kent MD Left: Hip [employer] [id number] 02/05/2024 700-04-54E / / [id number] Insert Trident 10d E 36mm X3 Acetabular Hip - [id number] Implanted:Qty: 1 on 11/06/2020 by Gunner Kent MD Left: Hip [employer] [id number] 07/29/2025 623-10-36E / / [id number] Stem Citation 132d 6 140mm 32mm 15mm Purefix Tmzf Femoral - [id number] Implanted:Qty: 1 on 11/06/2020 by Gunner Kent MD Left: Hip [employer] [id number] 11/22/2022 5707-6949 / / [id number] Head V40 +7.5mm 36mm Biolox Delta Femoral Hip - [id number] Implanted:Qty: 1 on 11/06/2020 by Gunner Kent MD Left: Hip [employer] [id number] 05/29/2025 6570-0-736 / / [id number] Care Teams New Car Get Ready Mechanic Relationship Specialty Start Date End Date Ashley Harrison MD [address] [place] [address] PCP - General Internal Medicine 03/19/20
--- NOTE | 2024-11-23 14:51 | MHC.OFFVIS ---
Vital Signs 11/23/24 14:54 Height 5 ft 11 in BP 150/100 H Blood Pressure Location Rt brachial Position Sitting Pulse 71 Pulse Source Pulse Oximeter Pulse Oximetry (%) 97 Oxygen Delivery Method Room Air Comment patient states he has elevated BP at [facility] appts- BP is normal at home Intake Visit Reasons: dupixent teaching Allergies Penicillins Allergy (Severe, Verified 11/23/24 14:55) Hives Medication List - Last Reconciled 11/23/24 by Melisa Church LPN albuterol sulfate 90 mcg/actuation 0 mcg inhalation albuterol sulfate 2.5 mg (3 mL) inhalation Q6H PRN albuterol sulfate 90 mcg/actuation 2 inhalations inhalation Q6H PRN 30 days amlodipine 5 mg PO DAILY azelastine 2 sprays intranasal BID 30 days Breo Ellipta 200-25 mcg/dose (fluticasone furoate-vilanterol) 1 inh inhalation DAILY 90 days NS cetirizine (Zyrtec) 10 mg PO DAILY PRN CPAP (CPAP Machine/Device) As directed dupilumab (Dupixent) loading dose: 600mg SC x 1, then 300mg SC every 2 weeks 4 weeks fluticasone propionate 50 mcg/actuation 2 sprays intranasal DAILY 90 days nebulizers As directed omeprazole 20 mg PO DAILY propranolol 60 mg PO DAILY HPI Comments Details: Jarrell and his are here for a Dupixent teach Claudine was educated on hand washing, injection preparation, administration, and disposal.?Claudine was able to return demonstrate proper technique for hand washing, injection preparation, administration and disposal of needle and states she has no questions at this time. Medication Dupixent 300mg/2mL autoinjector (patient?s own meds) Loading dose of 600mg given by the patient in 2 SQ injections; injection #1 R upper arm ;? injection #2 L upper arm? Lot# [id number] expires 04/04/2026. Patient aware his next injection is in 15 days. Nurse visit only.? [facility] Medical History (Updated 11/01/24 @ 22:55 by Elvis Jordan MD) Glaucoma Dyspnea Chronic cough Nasal polyps Asthma Complex sleep apnea syndrome MAYRA on CPAP Social History Patient Tobacco Use Status: Never used Tobacco Physical Exam Vital Signs: Last Vital Signs Pulse 71 11/23/24 14:54 BP 150/100 H 11/23/24 14:54 Pulse Ox 97 11/23/24 14:54 Oxygen Delivery Method Room Air 11/23/24 14:54 Assessment & Plan Assessment & Plan (1) Asthma: Code(s): J45.909 - Unspecified asthma, uncomplicated Category: Medical Qualifiers: Asthma complication type: uncomplicated Asthma persistence: persistent Asthma severity: moderate Qualified Code(s): J45.40 - Moderate persistent asthma, uncomplicated Plan: Dupixent Coding Level of Care Code Established Pt Est Pt Level 1 (29537) Patient Type Established Diagnoses Moderate persistent asthma without complication J45.40 Asthma complication type: uncomplicated Asthma persistence: persistent Asthma severity: moderate Comment NURSE VISIT ONLY
[2024-11-23 14:54] VITALS: BP 150/100; PULSE 71; O2SAT 97
== END 2024-11-23 09:56 | disposition home or self-care (01) ==
LOC: HO.HPS 09:30
PROVIDERS: PCP Internal Medicine; Visit Provider Hospitalist
DX: J45.40 Moderate persistent asthma, uncomplicated (principal)

== ENCOUNTER → 2024-11-23 09:29 | Outpatient (BNVA) | payer MEDICARE, SELFPAY | PROVIDERS: PCP Internal Medicine; Visit Provider Hospitalist | DX: J45.40 Moderate persistent asthma, uncomplicated (principal) | CPT/HCPCS: 99211 ==

== ENCOUNTER 2025-01-03 09:04 | Outpatient (AMB) | payer MEDICARE, SELFPAY ==
[2025-01-03 09:08] VITALS: BP 130/76; PULSE 66; O2SAT 96; BMI 33.1
--- NOTE | 2025-01-03 09:08 | A.OFFVIS_ITS ---
Vital Signs 01/03/25 09:08 Height 5 ft 11 in Weight 236 lb 15.951 oz BMI 33.1 BP 130/76 Blood Pressure Location Lt brachial Position Sitting Pulse 66 Pulse Source Pulse Oximeter Pulse Oximetry (%) 96 Oxygen Delivery Method Room Air Intake Visit Reasons: Sleep apnea Post Splitter Required: No Accompanied by: Spouse Allergies Penicillins Allergy (Severe, Verified 01/03/25 09:10) Hives HPI Comments Details: The patient is a 69-year-old gentleman with known history or asthma nasal polyps and also sleep apnea. The patient had a sleep study back in 2011 at [facility]. It was an in-lab study at that time. He did have moderate to severe sleep apnea and had both obstructive and central apneas during that study. The patient was subsequently referred for titration study. He was titrated on CPAP and managed to have good stable control of his apnea with a C PAP of 11 cm. He has been on CPAP for many years. However, he has been having hard time with CPAP at this time. His current CPAP is set up AutoPAP 8-14. I did download the data. His average pressure is around 12 and average use is around 3.5 hours. His AHI still elevated at 7 with three episodes an hour of central sleep apnea. At this time he is having hard time tolerating it because of significant dry mouth. He does use a fullface mask. And still significantly dry mouth where he needs to stop using it and drink water and refill the tank. He runs out of water from the chamber every night. His current settings he has a regular sling line tubing and humidity is at 8. I did change the APAP to CPAP 11 with ramp of 6 and decreased Humidity to 4. His last sleep study was in 2011 and he is not active with a Alegría. He will need to undergo a repeat in lab PSG to re-evaluate his complex sleep apnea. EPWORH score 05/29. 09/30/2022 the patient is here for a pulmonary follow-up visit. Continues to struggle with his sleep apnea. Still having daytime drowsiness with an Covert score elevated 05/29. If with switch his CPAP to a CPAP 11 cm of water during the last visit. The AHI continues to be elevated although less central sleep apnea noted. Therefore, will going to increase his CPAP to 13 cm and is going to monitor closely for any worsening apneic episodes. The patient also needs to have a in-lab sleep study with hopeful titration study in order to requalify him for his sleep apnea in getting him new supplies from a [employer] in addition to being able to titrate the pressures accordingly to treat his complex sleep apnea issue. The patient does have significant asthma and also nasal polyposis and atopic dermatitis. Unfortunately nasal polyps are affecting his ability to tolerate the PAP therapy. He is doing better with a fullface mask. Still consider biologic therapy such as Dupixent will be a good option for him. In the meantime he he is using the nasal therapies with the cortical steroids and also nasal rinsing. We also talked about adding budesonide to the Neti bottle in the future in order to help decrease the inflammation. Already he is already responding to the current regimen. Will have follow up after sleep study. If the patient has any issues prior to that he is to call for an appointment. 02/03/2023 patient is here for a pulmonary follow-up visit. Overall the patient seems to be doing little better. Still having daytime drowsiness. Covert score still elevated 8/24. He did undergo a titration sleep study which recommended switching his APAP to a BiPAP with a pressure of 19/15. On that pressure we spent for about an hour during the study his AHI was 0 his oxygenation was okay and his central apneas also were under good control. Initially when he started using the BiPAP seems like his AHI is were normalized. Then subsequently something happened that his pressure started climbing. For the last 2 nights he has been doing better. He has been also struggling with the mask. Initially had a fullface mask F20 and then because of significant nasal bridge leakage she was switch over to an F 30. Still not getting a good seal and his mouth is popping out of the mask and therefore he is losing pressure. He is complaining of very dry mouth which is uncomfortable. His settings already maximum with humidity of 8 and a temperature of 82 F. I believe this is all related to position and mass where his AHI is Very variable. I did provide him with a different mask, AirTouch foam F20 large. We were able to get a good seal with this mask. Was comfortable for him. He does have facial hairs of the foam will be better keeping seal. I do believe that with the functional [place] mouth is unlikely going to be dry and he probably have to decrease the humidity and the temperature. We left the settings the same . If the patient would like to try VPAP auto he can also switch the machine over to an auto setting although this may worsen the central apneas potentially. In regards of his asthma seems to be in good control at this time with current medicine. Also he did follow-up with ENT and he had no more evidence of nasal polyposis which is reassuring. 05/22/2023 the patient is here for sick visit. The patient a worse cough the last 4 weeks. The cough is moderate to severe. He has gotten to coughing spells where he nearly passed out or even passed out. He also has had a coughing episodes where he gags and vomits. Is been pretty significant for him. The patient states that he is able to bring up some phlegm at times that is whitish in color. Denies any pleuritic chest pain. He has been using his inhaler. He did go up on the Trelegy to the [facility] to see if this was more effective. He did get the RCA vaccine. He also get the flu vaccine. He did test negative for COVID-19. The cough appears to be bronchospastic although diminished breath sounds bilaterally. Will go ahead and treat him with DuoNeb x2 and then we will reassess the respiratory examination. I did personally review the chest x-ray that he had a [facility] on May 18 demonstrating no acute disease. Does have significant scoliosis. 07/31/2023 the patient is here for pulmonary follow-up visit. Finally starting to feel better. He was struggling with a respiratory illness in the last time I saw him. Subsequently after that he was starting to get better and then started getting worse again. He was evaluated at [facility] for worsening shortness of breath and chest tightness. He was diagnosed with RSV his chest x-ray personally viewed appeared to be clear. He has been using his nebulizer regularly. Finally he is now off the prednisone and off all antibiotics. He is feeling better overall. Denies any congested cough although he still coughing and still feel some chest tightness. A my examination it is reassuring he does not have any significant wheezing at this time. I do not believe he needs additional steroids. He does plan to continue using the nebulizer and is Breo will be increased to a higher dose. If the patient is not improving or worsens he can always call for further Recommendations. As far as his BiPAP the BiPAP therapy has been affecting beneficial. He does use it every night for more than 4 hours a night in the therapy continues to be helpful. 04/11/2024 the patient is here for sick visit. Apparently 2 weeks ago he was exposed to sick contact with his grandson. started developing URI symptoms. And then subsequently after that started developing worsening asthma symptoms. Significant chest tightness and wheezing. And subsequently coughing. The coughing spells became worse and worse. the coughing spells were pretty is sporadic. But moderate severity. Affecting his sleep. He has taken lnlb-ziu-[id number] medications without any significant improvement. He has been using his inhalers in his nebulizer also with only partial improvement of the symptoms. Therefore could not tolerate the symptoms longer decided to come in. The patient was having significant coughing spells and did have some crackles on examination suggesting some degree of bronchiolitis. He was given 2 treatments with DuoNeb with some partial improvement. Subsequently because of the significant chest tightness and wheezing he did receive Solu-Medrol intramusc ularly. He is going to start a prednisone taper in addition to doxycycline to make sure we took covered for atypicals. If the patient is no better in 48 hours or so should call the office and we should get an x-ray. He meantime will provide him also with some cough medicine. He can hold off on using the BiPAP specially well dealing with a cough. Once he recovers from this respiratory illness she can go back to using the BiPAP. The patient has a follow-up in May. If he has any issues prior to that he will call for an earlier assessment. 05/17/2024 the patient is here for a pulmonary follow-up visit. He is feeling better overall. Although he still having some shortness of breath with activity and feels that heaviness of the chest. He is currently on the Breo on continues with his rescue inhaler. The patient apparently did have a diagnosis of glaucoma 1 point therefore he is not taking any anticholinergics. This can be readdressed although I do believe he should have his eyes checked again to make sure that he is stable if ever considering any muscarinic antagonist therapy. In the meantime he does have evidence of obstruction his PFTs consistent with asthma COPD overlap syndrome. The patient also has evidence of chronic bronchitis. He has been requiring prednisone. Therefore, he be a good candidate for Daliresp. This will decrease need for prednisone and will treat his chronic bronchitis better. Will start him on 250 mcg in the increase to 500 mcg as long as he can tolerate. Also, the patient does have underlying allergies he does have eczema and history of chronic rhinitis and potentially hypertrophic turbinates it may be a good candidate for biologics such as Dupixent. Therefore, will consider this further if he does not show any improvement. He continues use a BiPAP every night. BiPAP therapy has been affecting beneficial. Seems like his AHI is well below 5 which is reassuring. And his using more than 4 hours a night. Will continue to use his therapy as prescribed. Will follow-up in 2-3 months. If the patient is having any worsening symptoms will call for an earlier assessment. 11/01/2024 the patient is here for a pulmonary follow-up visit. Overall he is doing okay. He has had a bad bout of worsening respiratory symptoms back in September after being exposed to a sick contact. He started developing significant chest tightness cough. He did use his nebulizer machine and was able to take antibiotics and not need prednisone. Although he does not feel completely back to baseline. He has been on Breo. Unfortunately he does a history of glaucoma so we have to be careful with steroids in addition to anticholinergics. We did try to get him on Daliresp which would be a good option for him. However, his insurance still has an appeal on it. The patient may also be a good candidate for the Dupixent. He does have a history of nasal polyps and significant asthma. Will go ahead and request blood work at this time. In addition to that the patient may be also a good candidate for other alternative nebulized therapies. The patient continues to have significant daytime drowsiness. Even with effective treatment with BiPAP. His AHI is down to 0.5. He has already had a TSH check and hemoglobin stable. No clear etiology for the symptoms of daytime drowsiness. It could be secondary to his allergies. Therefore if we can treat his allergies and asthma more optimize then we can see if this any improvement in his quality of life. If not then other options to consider stimulant as people that use PAP therapy can still have some degree of daytime drowsiness even after effective and therapeutic AHI. 01/03/2025 the patient is here for a pulmonary follow-up visit. Overall the patient has been doing very well. He did start the Dupixent. The Dupixent has caused significant improvement in his respiratory capacity. He is actually feeling like his lungs are opening up and he can exercise a little bit more. His back pain that he has had for some time also subsided. Therefore a lot of it may have been just from his significant airway obstruction. The patient continues uses respiratory therapy as prescribed. He has not had to use his nebulizer as much which is an encouraging results of the Dupixent. His eczema is also better. He does have a little conjunctivitis and will watch closely. He did have conjunctivitis prior to the Dupixent though. He understands that Dupixent can make it worse. No recent imaging studies to review. As far as his BiPAP he is tolerating well with the current pressures. His AHI seems to be little bit more elevated from an increase of his central apneas but minimal. Therefore will continue with the current pressures . If it worsens he can always call and we can treat the pressures further. But at this point I will leave it alone since he is doing well. The patient follow-up in 6-8 months. If he has any issues prior to this he will call for an earlier assessment. [facility] Medical History (Updated 11/01/24 @ 22:55 by Elvis Jordan MD) Glaucoma Dyspnea Chronic cough Nasal polyps Asthma Complex sleep apnea syndrome MAYRA on CPAP Social History Patient Tobacco Use Status: Never used Tobacco Review of Systems Const Denies fever(s) and Denies weight gain Eyes Reports no additional complaints and Reports eye discharge ENT Reports nasal congestion, Reports nasal discharge and Denies nasal obstruction Card Denies chest pain and Reports dyspnea on exertion Resp Denies change in phlegm color, Reports cough, Denies hemoptysis, Reports dyspnea on exertion and Denies wheezing GI Reports no additional complaints Musc Reports arthralgias and Reports limited range of motion Skin/Breast Denies rash Neuro Reports no additional complaints Endo Denies flushing Nahun/Lymph Denies easy bleeding and Denies easy bruising Aller/Immun Reports seasonal rhinorrhea and Denies wheezing Physical Exam Vital Signs: Last Vital Signs Pulse 66 01/03/25 09:08 BP 130/76 01/03/25 09:08 Pulse Ox 96 01/03/25 09:08 Oxygen Delivery Method Room Air 01/03/25 09:08 BMI result Body Mass Index 33.1 Const General: comfortable HEENT General nose exam: Abnormal mucous membranes and turbinates present erythematous and Nasal polyp present Throat: Yes cobblestoning Eyes General: appearance normal, both eyes and all related structures Neck Neck: Yes supple Chest Chest palpation & inspection: normal inspection of the chest Resp Effort & Inspection: normal respiratory effort Auscultation: diminished lung sounds Cardio Rate: regular rate Rhythm: regular rhythm Heart sounds: S1 normal heart sound present and S2 normal heart sound present GI Auscultation: normal bowel sounds Skin Rashes: no rashes Extrem General: No clubbing and No cyanosis Assessment & Plan Assessment & Plan (1) Asthma: Code(s): J45.909 - Unspecified asthma, uncomplicated Category: Medical Qualifiers: Asthma complication type: uncomplicated Asthma persistence: persistent Asthma severity: moderate Qualified Code(s): J45.40 - Moderate persistent asthma, uncomplicated (2) Bronchitis: Code(s): J40 - Bronchitis, not specified as acute or chronic Category: Medical (3) Complex sleep apnea syndrome: Code(s): G47.31 - Primary central sleep apnea Category: Medical (4) Nasal polyps: Code(s): J33.9 - Nasal polyp, unspecified Category: Medical (5) Glaucoma: Code(s): H40.9 - Unspecified glaucoma Category: Medical Qualifiers: Glaucoma type: unspecified Laterality: bilateral Qualified Code(s): H40.9 - Unspecified glaucoma (6) Dyspnea: Code(s): R06.00 - Dyspnea, unspecified Category: Medical Qualifiers: Dyspnea type: dyspnea on exertion Qualified Code(s): R06.09 - Other forms of dyspnea Plan continue CPT with acapella Albuterol via nebulizer BID as needed Breo 200 daily no LAMA if eye pressures continue to be stable nasal sprays as per Allergy continue sinus saline rinsing continue BIPAP, monitor for worsening central apneas Dupixent [id number] weight management F/U 6 months Coding Level of Care Code Est Pt Level 4 (42836) Complex EM visit Add On G2211 Diagnoses Moderate persistent asthma without complication J45.40 Asthma complication type: uncomplicated Asthma persistence: persistent Asthma severity: moderate Bronchitis J40 Complex sleep apnea syndrome G47.31 Nasal polyps J33.9 Glaucoma of both eyes, unspecified glaucoma type H40.9 Glaucoma type: unspecified Laterality: bilateral Dyspnea on exertion R06.09 Dyspnea type: dyspnea on exertion Time Spent (min) 17
--- OUTSIDE RECORDS SUMMARY | 2025-01-03 09:30 | XMS_ITS | Clinical Summary ---
Author Organization [facility] Address [address] [place] [address] Care Team Providers Care Railcar Switchman Name Role Phone Ashley Harrison MD Primary Care Provider [phone] Allergies Active Allergy Reactions Criticality Noted Date [...] 69 11/07/2020 7:51 AM EDT Temperature 37.4 C (99.3 F) 11/07/2020 7:51 AM EDT Respiratory Rate 18 11/07/2020 7:51 AM EDT [...] Td or Tdap) 09/03/2021 09/04/2011 Influenza Vaccine (Season Ended) 2025 05/17/2020, 03/23/2018, 04/17/2017, Additional history exists RSV Adult > 60+ Yrs or (1 - 1-dose 75+ series) 12/04/2030 Hepatitis B Vaccines Aged Out No long er eligible based on patient's age to complete this topic RSV Ped < 20 months Aged Out No longe r eligible based on patient's age to complete this topic Medical Devices Implanted Type Area Gauge And Weigh Machine Operator Device Identifier Shelf Expiration Date Model / Serial / Lot Shell Trident Ii E 54mm Solid Back Tritanium Acetabular Hip - [id number] - [id number] Implanted:Qty: 1 on 04/10/2020 by Gunner Kent [place] [facility] Right: Hip [employer] [id number] 05/10/2024 700-04-54E / / [id number] Insert Trident 10d E 36mm X3 Acetabular Hip - [id number] - [id number] Implanted:Qty: 1 on 04/10/2020 by Gunner Kent MD at [facility] Right: Hip [employer] [id number] 07/18/2024 623-10-36E / / [id number] Stem Citation 132d 6 140mm 32mm 15mm Purefix Tmzf Femoral - [id number] - [id number] Implanted:Qty: 1 on 04/10/2020 by Gunner Kent MD at [facility] Right: Hip [employer] [id number] 05/25/2022 3324-6942 / / [id number] Head V40 +7.5mm 36mm Biolox Delta Femoral Hip - 660294 - [id number] Implanted:Qty: 1 on 04/10/2020 by Gunner Kent MD at [facility] Right: Hip [employer] [id number] 09/26/2024 6570-0-736 / / [id number] Shell Trident Ii E 54mm Solid Back Tritanium Acetabular Hip - 105980 - [id number] Implanted:Qty: 1 on 11/06/2020 by Gunner Kent MD at [facility] Left: Hip [employer] [id number] 02/05/2024 700-04-54E / / [id number] Insert Trident 10d E 36mm X3 Acetabular Hip - 272531 - [id number] Implanted:Qty: 1 on 11/06/2020 by Gunner Kent MD at [facility] Left: Hip [employer] [id number] 07/29/2025 623-10-36E / / [id number] Stem Citation 132d 6 140mm 32mm 15mm Purefix Tmzf Femoral - [id number] - [id number] Implanted:Qty: 1 on 11/06/2020 by Gunner Kent MD at [facility] Left: Hip [employer] [id number] 11/22/2022 2756-1500 / / [id number] Head V40 +7.5mm 36mm Biolox Delta Femoral Hip - [id number] - [id number] Implanted:Qty: 1 on 11/06/2020 by Gunner Kent MD at [facility] Left: Hip [employer] [id number] 05/29/2025 6570-0-736 / / [id number] Advance Directives For more information, please contact: [phone] Documents on File Type Date Recorded Patient Channeler Expl anation Advance Directive and Living Will [...] way: discussion with patient . Care Teams Railcar Switchman Relationship Specialty Start Date End Date Ashley Harrison MD PCP - General Internal Medicine 03/19/20
--- OUTSIDE RECORDS SUMMARY | 2025-01-03 09:30 | XMS_ITS | Clinical Summary ---
Author Organization [facility] Address [address] [place] [address] Care Team Providers Care Tool Die Maker Name Role Phone Ronald Perez MD Primary Care Provider [phone] Medications EPINEPHrine (EPIPEN) 0.3 MG/0.3ML injection syringe [...] rhinitis 12/22/2022 Nasal septal deviation 12/22/2022 Immunizations Immunization Administration Dates Next Due COVID-19, mRNA (Pfizer [...] 04/02/2022, 11/09/2021, Additional history exists Influenza (#1) 2025 03/27/2023, 03/07, 03/29/2021, Additional history exists DTaP/Tdap/Td [...] this topic Zoster (Zostavax) Discontinued Care Teams Tool Die Maker Relationship Specialty Start Date End Date Ronald Perez MD [address] [address] PCP - General 02/09/23
--- OUTSIDE RECORDS SUMMARY | 2025-01-03 09:30 | XMS_ITS | Patient Health Record ---
Author Organization [facility] Address [address] [place] [address] Care Team Providers Care Office Machine Servicer Apprentice Name Role Phone ChristyMonikaLilaginette Primary Care Provider SRUTHI Sagastume Unavailable [phone] Allergies Allergen (clinical drug ingredient) Drug/Non Drug [...] day for 90 days 05/26/2023 Not-Taking Nystatin 874860 UNIT/GM 1 application to the left big toenail Externally once daily for 90 days 05/27/2023 Active Terbinafine 1% cream Not-Taki ng Fluticasone Propionate (Inhal) 50 MCG/ACT 1 puff Inhalation Twice a day Not-Taking Terbinafine & Miconazole 250 & 2 MG & % as directed Externally once daily for 90 days 12/16/2023 Active Plan Of Treatment No Information Insurance Providers Payer Name Payer Address Payer Phone Subscriber Number Group Number Insured Name Patient Relationship to Insured Coverage Start Date Coverage End Date [employer] [place] [address] [place] [phone] [id number] Jarrell Murphy Self - patient is the insured [facility] [address] [place] [phone] [id number] Jarrell Murphy Self - patient is [...]
--- OUTSIDE RECORDS SUMMARY | 2025-01-03 09:30 | XMS_ITS | Clinical Summary ---
Author Organization [facility] [employer] [facility] ity Address [address] [place] [address] Care Team Providers Care Fairing Man Name Role Phone Ashley Harrison MD Primary Care Provider [phone] Surgical History Surgery Date Site/Laterality Comments COLONOSCOPY [...] this topic Medical Devices Implanted Type Area Technical Fellow Device Identifier Shelf Expiration Date Model / Serial / Lot Shell Trident Ii E 54mm Solid Back Tritanium Acetabular Hip - [id number] Implanted:Qty: 1 on 04/10/2020 by Gunner Kent MD Right: Hip [employer] [id number] 05/10/2024 700-04-54E / / [id number] Insert Trident 10d E 36mm X3 Acetabular Hip - [id number] Implanted:Qty: 1 on 04/10/2020 by Gunner Kent MD Right: Hip [employer] [id number] 07/18/2024 623-10-36E / / [id number] Stem Citation 132d 6 140mm 32mm 15mm Purefix Tmzf Femoral - [id number] Implanted:Qty: 1 on 04/10/2020 by Gunner Kent MD Right: Hip [employer] [id number] 05/25/2022 8380-6251 / / [id number] Head V40 +7.5mm 36mm Biolox Delta Femoral Hip - [id number] Implanted:Qty: 1 on 04/10/2020 by Gunner Kent MD Right: Hip [employer] [id number] 09/26/2024 6570-0-736 / / [id number] Shell Trident Ii E 54mm Solid Back Tritanium Acetabular Hip - [id number] Implanted:Qty: 1 on 11/06/2020 by Gunner Kent MD Left: Hip [employer] [id number] 02/05/2024 700-04-54E / / [id number] Insert Trident 10d E 36mm X3 Acetabular Hip - [id number] Implanted:Qty: 1 on 11/06/2020 by Gunner Kent MD Left: Hip [employer] [id number] 07/29/2025 623-10-36E / / [id number] Stem Citation 132d 6 140mm 32mm 15mm Purefix Tmzf Femoral - [id number] Implanted:Qty: 1 on 11/06/2020 by Gunner Kent MD Left: Hip [employer] [id number] 11/22/2022 1538-7469 / / [id number] Head V40 +7.5mm 36mm Biolox Delta Femoral Hip - [id number] Implanted:Qty: 1 on 11/06/2020 by Gunner Kent MD Left: Hip [employer] [id number] 05/29/2025 6570-0-736 / / [id number] Care Teams Fairing Man Relationship Specialty Start Date End Date Ashley Harrison MD [address] [place] [address] PCP - General Internal Medicine 03/19/20
== END 2025-01-03 09:28 | disposition home or self-care (01) ==
LOC: HO.HPS 09:04
PROVIDERS: PCP Internal Medicine; Visit Provider Hospitalist
DX: J45.40 Moderate persistent asthma, uncomplicated (principal); J40 Bronchitis, not specified as acute or chronic; G47.31 Primary central sleep apnea; J33.9 Nasal polyp, unspecified; H40.9 Unspecified glaucoma; R06.09 Other forms of dyspnea
CPT/HCPCS: 99213; G2211

== ENCOUNTER → 2025-01-03 09:04 | Outpatient (BNVA) | payer MEDICARE, SELFPAY | PROVIDERS: PCP Internal Medicine; Visit Provider Hospitalist | DX: J45.40 Moderate persistent asthma, uncomplicated (principal); J33.9 Nasal polyp, unspecified; R05.3 Chronic cough; J40 Bronchitis, not specified as acute or chronic; G47.31 Primary central sleep apnea; H40.9 Unspecified glaucoma; R06.09 Other forms of dyspnea | CPT/HCPCS: 99212 ==

== ENCOUNTER 2025-01-10 09:42 | Outpatient (AMB) | payer MEDICARE, SELFPAY ==
--- OUTSIDE RECORDS SUMMARY | 2025-01-10 10:14 | XMS_ITS | Clinical Summary ---
Author Organization [facility] Address [address] [place] [address] Care Team Providers Care Pediatric Allergist Name Role Phone Ronald Perez MD Primary [...] this topic Zoster (Zostavax) Discontinued Care Teams Pediatric Allergist Relationship Specialty Start Date End Date Ronald Perez MD [address] [address] PCP - General 02/09/23
--- OUTSIDE RECORDS SUMMARY | 2025-01-10 10:14 | XMS_ITS | Clinical Summary ---
Author Organization [facility] Address [address] [place] [address] Care Team Providers Care Bladder Trimmer Name Role Phone Ashley Harrison MD Primary Care Provider [phone] Allergies Active Allergy Reactions Criticality Noted Date [...] or Tdap) 09/03/2021 09/04/2011 Influenza Vaccine (#1) 2025 0, 03/23/2018, 04/17/2017, Additional history exists RSV Adult > 60+ Yrs or (1 - 1-dose 75+ series) 12/04/2030 Hepatitis B Vaccines Aged Out No long er eligible based on patient's age to complete this topic RSV Ped < 20 months Aged Out No longe r eligible based on patient's age to complete this topic Medical Devices Implanted Type Area Subscription Crew Leader Device Identifier Shelf Expiration Date Model / Serial / Lot Shell Trident Ii E 54mm Solid Back Tritanium Acetabular Hip - [id number] - [id number] Implanted:Qty: 1 on 04/10/2020 by Gunner Kent [place] [facility] Right: Hip [employer] [id number] 05/10/2024 700-04-54E / / [id number] Insert Trident 10d E 36mm X3 Acetabular Hip - 143888 - [id number] Implanted:Qty: 1 on 04/10/2020 by Gunner Kent MD [place] [facility] Right: Hip [employer] [id number] 07/18/2024 623-10-36E / / [id number] Stem Citation 132d 6 140mm 32mm 15mm Purefix Tmzf Femoral - [id number] - [id number] Implanted:Qty: 1 on 04/10/2020 by Gunner Kent MD [place] [facility] Right: Hip [employer] [id number] 05/25/2022 4962-0300 / / [id number] Head V40 +7.5mm 36mm Biolox Delta Femoral Hip - 355449 - [id number] Implanted:Qty: 1 on 04/10/2020 by Gunner Kent MD at [facility] Right: Hip [employer] [id number] 09/26/2024 6570-0-736 / / [id number] Shell Trident Ii E 54mm Solid Back Tritanium Acetabular Hip - 248671 - [id number] Implanted:Qty: 1 on 11/06/2020 by Gunner Kent MD at [facility] Left: Hip [employer] [id number] 02/05/2024 700-04-54E / / [id number] Insert Trident 10d E 36mm X3 Acetabular Hip - 360732 - [id number] Implanted:Qty: 1 on 11/06/2020 by Gunner Kent MD at [facility] Left: Hip [employer] [id number] 07/29/2025 623-10-36E / / [id number] Stem Citation 132d 6 140mm 32mm 15mm Purefix Tmzf Femoral - [id number] - [id number] Implanted:Qty: 1 on 11/06/2020 by Gunner Kent MD at [facility] Left: Hip [employer] [id number] 11/22/2022 4524-0499 / / [id number] Head V40 +7.5mm 36mm Biolox Delta Femoral Hip - 527318 - [id number] Implanted:Qty: 1 on 11/06/2020 by Gunner Kent MD at [facility] Left: Hip [employer] [id number] 05/29/2025 6570-0-736 / / [id number] Advance Directives For more information, please contact: [phone] Documents on File Type Date Recorded Patient Test Specialist Expl anation Advance Directive and Living [...] way: discussion with patient . Care Teams Bladder Trimmer Relationship Specialty Start Date End Date Ashley Harrison MD PCP - General Internal Medicine 03/19/20
--- OUTSIDE RECORDS SUMMARY | 2025-01-10 10:14 | XMS_ITS | Patient Health Record ---
Author Organization [facility] Address [address] [place] [address] Care Team Providers Care Batch Still Operator Name Role Phone ChristyMonikaLilaginette Primary Care Provider SRUTHI Sagastume Unavailable [phone] Allergies Allergen (clinical drug ingredient) Drug/Non Drug [...] day for 90 days 05/26/2023 Not-Taking Nystatin [id number] UNIT/GM 1 application to the left big [...] of [place] [address] [place] [address] [phone] [id number] Jarrell Murphy Self - patient is the insured [facility] [address] [place] [address] [phone] [id number] Jarrell Murphy Self - patient is [...]
--- OUTSIDE RECORDS SUMMARY | 2025-01-10 10:14 | XMS_ITS | Clinical Summary ---
Author Organization [facility] ity Address [address] [place] [address] Care Team Providers Care Rn L And D Name Role Phone Ashley Harrison MD Primary Care Provider [phone] Surgical History Surgery Date Site/Laterality Comments COLONOSCOPY [...] Vaccine (2023-2 5 season) 2024 Influenza Vaccine (#1) 2025 RSV Immunization Adult Patie nts (1 - 1-dose 75+ series) 12/04/2030 [...] this topic Medical Devices Implanted Type Area Record Retrieval Specialist Device Identifier Shelf Expiration Date Model / Serial / Lot Shell Trident Ii E 54mm Solid Back Tritanium Acetabular Hip - [id number] Implanted:Qty: 1 on 04/10/2020 by Gunner Kent MD Right: Hip [employer] [id number] 05/10/2024 700-04-54E / / [id number] Insert Trident 10d E 36mm X3 Acetabular Hip - [id number] Implanted:Qty: 1 on 04/10/2020 by Gunner Kent MD Right: Hip [employer] [id number] 07/18/2024 623-10-36E / / [id number] Stem Citation 132d 6 140mm 32mm 15mm Purefix Tmzf Femoral - [id number] Implanted:Qty: 1 on 04/10/2020 by Gunner Kent MD Right: Hip [employer] [id number] 05/25/2022 6461-7553 / / [id number] Head V40 +7.5mm 36mm Biolox Delta Femoral Hip - [id number] Implanted:Qty: 1 on 04/10/2020 by Gunner Kent MD Right: Hip [employer] [id number] 09/26/2024 6570-0-736 / / [id number] Shell Trident Ii E 54mm Solid Back Tritanium Acetabular Hip - [id number] Implanted:Qty: 1 on 11/06/2020 by Gunner Kent MD Left: Hip [employer] [id number] 02/05/2024 700-04-54E / / [id number] Insert Trident 10d E 36mm X3 Acetabular Hip - [id number] Implanted:Qty: 1 on 11/06/2020 by Gunner Kent MD Left: Hip [employer] [id number] 07/29/2025 623-10-36E / / [id number] Stem Citation 132d 6 140mm 32mm 15mm Purefix Tmzf Femoral - [id number] Implanted:Qty: 1 on 11/06/2020 by Gunner Kent MD Left: Hip [employer] [id number] 11/22/2022 2024-5571 / / [id number] Head V40 +7.5mm 36mm Biolox Delta Femoral Hip - [id number] Implanted:Qty: 1 on 11/06/2020 by Gunner Kent MD Left: Hip [employer] [id number] 05/29/2025 6570-0-736 / / [id number] Care Teams Rn L And D Relationship Specialty Start Date End Date Ashley Harrison MD [address] [place] [address] PCP - General Internal Medicine 03/19/20
--- OUTSIDE RECORDS SUMMARY | 2025-01-10 10:15 | XMS_ITS ---
Author Name [facility] Organization Unknown Encounters Encounter Type Encounter Reason Primary Diagnosis Location Date Ambulatory [facility] 11/2022 Care Team Organization Name Specialty Phone Email Start Date End Da te [facility] 02/02/2023 02/02/2023 [facility] 11/07/2022 03/10/2024
[2025-01-10 14:59] VITALS: BP 140/80; PULSE 68; O2SAT 97
--- NOTE | 2025-01-10 14:59 | A.OFFVIS_ITS ---
Vital Signs 01/10/25 14:59 Height 5 ft 11 in BP 140/80 H Blood Pressure Location Rt brachial Position Sitting Pulse 68 Pulse Source Pulse Oximeter Pulse Oximetry (%) 97 Oxygen Delivery Method Room Air Intake Visit Reasons: Dupixent teach Airplane Navigator Required: No Allergies Penicillins Allergy (Severe, Verified 01/10/25 15:00) Hives Medication List - Last Reconciled 01/10/25 by Melisa Church LPN albuterol sulfate 2.5 mg (3 mL) inhalation Q6H PRN albuterol sulfate 90 mcg/actuation 2 inhalations inhalation Q6H PRN 30 days amlodipine 5 mg PO DAILY atorvastatin (Lipitor) 40 mg PO DAILY azelastine 2 sprays intranasal BID 30 days Breo Ellipta 200-25 mcg/dose (fluticasone furoate-vilanterol) 1 inh inhalation DAILY 90 days NS cetirizine (Zyrtec) 10 mg PO DAILY PRN CPAP (CPAP Machine/Device) As directed dupilumab (Dupixent) loading dose: 600mg SC x 1, then 300mg SC every 2 weeks 4 weeks fluticasone propionate 50 mcg/actuation 2 sprays intranasal DAILY 90 days nebulizers As directed omeprazole 20 mg PO DAILY propranolol 60 mg PO DAILY HPI Comments Details: Jarrell is here for a Dupixent teach Jarrell was re- educated on hand washing, injection preparation, administration, and disposal.? He was able to return demonstrate proper technique for hand washing, injection preparation, administration and disposal of needle and states he has no questions at this time. Medication Dupixent 300mg/2mL autoinjector (patient?s own meds) one maintenance dose given by the patient in a SQ injection to his R abdomen Lot# [id number] exps. 03/05/2026 Patient aware his next injection is in 14 days. Nurse visit only.? [facility] Medical History (Updated 11/01/24 @ 22:55 by Elvis Jordan MD) Glaucoma Dyspnea Chronic cough Nasal polyps Asthma Complex sleep apnea syndrome MAYRA on CPAP Social History Patient Tobacco Use Status: Never used Tobacco Physical Exam Vital Signs: Last Vital Signs Pulse 68 01/10/25 14:59 BP 140/80 H 01/10/25 14:59 Pulse Ox 97 01/10/25 14:59 Oxygen Delivery Method Room Air 01/10/25 14:59 Assessment & Plan Assessment & Plan (1) Asthma: Code(s): J45.909 - Unspecified asthma, uncomplicated Category: Medical Qualifiers: Asthma complication type: uncomplicated Asthma persistence: persistent Asthma severity: moderate Qualified Code(s): J45.40 - Moderate persistent asthma, uncomplicated Plan Dupixent teaching Coding Level of Care Code Established Pt Est Pt Level 1 (04956) Patient Type Established Diagnoses Moderate persistent asthma without complication J45.40 Asthma complication type: uncomplicated Asthma persistence: persistent Asthma severity: moderate Comment NURSE VISIT ONLY
== END 2025-01-10 10:17 | disposition home or self-care (01) ==
LOC: HO.HPS 09:42
PROVIDERS: PCP Internal Medicine; Visit Provider Hospitalist
DX: J45.40 Moderate persistent asthma, uncomplicated (principal)

== ENCOUNTER → 2025-01-10 09:42 | Outpatient (BNVA) | payer MEDICARE, SELFPAY | PROVIDERS: PCP Internal Medicine; Visit Provider Hospitalist | DX: J45.40 Moderate persistent asthma, uncomplicated (principal) | CPT/HCPCS: 99211 ==